=== PATIENT | female | born 1995 | race Caucasian/White ===

== ENCOUNTER → 2018-03-03 00:25 | Observation (INO) ==
--- NOTE | 2018-03-02 23:23 | OB/GYN History & Physical ---
Date of Encounter: 03/02/18 Time of Encounter: 23:23 Assessment and Plan (1) premature rupture of membranes (PPROM) with unknown onset of labor Current visit: Yes Status: Acute PPROM for moderate amount clear fluid at about 2130 this evening. GBS collected. Ampicillin 1 gram IV now. Zithromax 500mg PO now. Celestone 12mg given IM. Pt denies contractions, rare contractions on toco. Transfer to [facility]. POC discussed with Dr. Garcia and Dr. Lopez Sorenson (M fellow) (2) 31 weeks gestation of Current visit: Yes Status: Acute History of Present Illness Chief complaint: leaking fluid HPI: Ms. Brady is a 22 year old female presenting at 31w3d with c/o leaking fluid since about 2130 this evening. She reports a large gush of clear fluid and continued leaking since. She denies contractions, bleeding, or other complaints. Good FM. She receives care with Dr. Cisneros at [facility] and reports this has been uncomplicated. She denies any medical or obstetrical problems. She is taking vitamins. Her first was uncomplicated and resulted in a full term vaginal delivery at 38 weeks. Records requested but not yet available at the time of this report. Past Med Surg Social Fam HX - Past Medical History Medical history: no medical history Psychiatric history: no psych history - Past Surgical History Surgical History: no surgical history - Social History Smoking Status: Former smoker Smokeless Tobacco Status: No Alcohol use: none Drug use: none - Family History Grandmother Adopted: No Family Member Ethnicity: Non- Living Status: Still Living Hx Family Cardiac Disorders: Yes Hx Family Respiratory Disorders: No Hx Family Cancer: No Hx Family GI Disorders: No Hx Family Genitourinary Disorders: No Hx Family Endocrine Disorder: No Hx Family Musculoskeletal Disorders: No Hx Family Neuromuscular Disorders: No Hx Family Neurologic Disorders: No Hx Family HEENT Disorders: No Hx Family Autoimmune Disorders: No Hx Family Reproductive Disorders: No Hx Family Psychosocial Disorders: No Hx Family Medical Disorders: No Obstetrical History - Pregnancies : 2 Para: 1 Term: 1 : 0 Ab's: 0 Livin Medications and Allergies Pnv#75/Iron Fum/FA/Om3/Dha/Epa [Daily Combo Pack] 1 tab PO DAILY 06/09/ 18 [History] 3 Allergy/AdvReac Type Severity Reaction Status Date / Time Sulfa (Sulfonamide Allergy Hives Verified 03/02/18 22:56 Antibiotics) Review of System OB All systems PM: reviewed and no additional remarkable complaints except as stated Exam - Constitutional Constitutional: well developed, well nourished, no acute distress - HEENT HEENT: Mucus Membranes Moist, Other (poor dentition) - Lungs Respiratory exam: CTAB - Cardiovascular Cardiovascular exam: RRR - Abdomen Abdomen: Present: gravid, non tender - Extremities Extremities exam: normal inspection - Vulva Vulva: bilateral: normal - Cervix Dilation: 3 Effacement: 80 Station: -2 - Anus/Rectum Anus/Rectum: Present: normal perianal skin - Comments Comments: SSE +pooling, +ferning, +nitrazine Results Result Diagrams: 03/02/18 23:20 All other labs normal. - VTE Reasons for not Prescribing Prophylaxis: Treatment not Indicated - Low risk for VTE
[2018-03-02 23:33] LABS: Hematocrit 34.8 % (35.3-44.9); Hemoglobin 11.7 g/dL (11.5-15.4); Immature Granulocytes % 0.6 % (0-4); Lymphocytes % 19.3 %; Mean Corpuscular HGB Conc 33.6 g/dL (31.6-35.5); Mean Corpuscular Volume 89.2 fL (83.0-100.0); Mean Platelet Volume 10.4 fL (9.4-12.4); Platelet Count 244 K/mcL (140-400); Segmented Neutrophils % 68.3 %
[2018-03-02 23:34] LABS: Basophils % 0.3 %; Eosinophils # 0.1 K/mcL (0.0-0.6); Eosinophils % 1.2 %; Lymphocytes # 1.8 K/mcL (0.6-4.6); Monocytes % 10.3 %; Neutrophils # 6.4 K/mcL (1.6-8.9)
[2018-03-03 00:06] LABS: Amphetamine Screen,Urine Negative ng/mL (Cutoff=1000); Barbiturate Screen,Urine Negative ng/mL (Cutoff=200); Benzodiazepines Screen,Urine Negative ng/mL (Cutoff=200); Cannabinoid Screen,Urine Negative ng/mL (Cutoff = 50); Cocaine Screen,Urine Negative ng/mL (Cutoff= 300); Opiate Screen,Urine Negative ng/mL (Cutoff=300); Phencyclidine Screen,Urine Negative ng/mL (Cutoff=25)
[~2018-03-03 00:25] MED LIST: Ampicillin 1,000 MG in 0.9 % Sodium Chloride Mini Bag 100 ML IVPB SCH; Azithromycin 250 MG TABLET PO ONE; Betamethasone Acet/SodPhos 6 MG/ML MDV IM SCH; Ringers Solution, Lactated 1,000 ML IVC SCH; Ringers Solution, Lactated 1,000 ML ONE
== END ==
LOC: 1NENULAB
PROVIDERS: ADMIT Registered Nurse; ATTEND Registered Nurse

== ENCOUNTER 2018-07-21 21:39 | Inpatient (IN) ==
[2018-07-21] MEDS ORDERED: Isovue-370 500 ML INFUS..BTL IV ONE (22:19)
[2018-07-21 22:26] LABS: Basophils % 0.1 %; Eosinophils # 0.1 K/mcL (0.0-0.6); Eosinophils % 0.9 %; Hemoglobin 13.1 g/dL (11.5-15.4); Immature Granulocytes % 0.6 % (0-4); Lymphocytes # 0.8 K/mcL (0.6-4.6); Lymphocytes % 8.3 %; Mean Corpuscular HGB Conc 33.6 g/dL (31.6-35.5); Mean Corpuscular Volume 86.5 fL (83.0-100.0); Mean Platelet Volume 10.7 fL (9.4-12.4); Monocytes # 0.9 K/mcL (0.0-1.3); Monocytes % 10.3 %; Neutrophils # 7.2 K/mcL (1.6-8.9); Platelet Count 299 K/mcL (140-400); Red Blood Count 4.51 M/mcL (3.82-4.97); Segmented Neutrophils % 79.8 %
[2018-07-21 22:32] LABS: Clarity,Urine Clear (Clear); Color,Urine Orange (Yellow)
[2018-07-21 22:34] LABS: Bacteria,Urine None Seen per hpf (None-Few); Hyaline Casts,Urine None Seen per lpf (None-Few); Squamous Epithelial Cell,Urine Many per lpf (None-Few)
[2018-07-21 22:34] LABS: INR 1.1; Prothrombin Time 12.8 Seconds (9.4-12.1)
[2018-07-21 22:37] LABS: Activated Partial Thrombo Time 35.1 Seconds (26.0-36.0); Alanine Aminotransferase 130 Units/L (7-52); Albumin/Globulin Ratio 1.1 (1.1-2.2); Alkaline Phosphatase 295 Units/L (34-104); Aspartate Amino Transferase 56 Units/L (13-39); BUN/Creatinine Ratio 13 (6-26); Bilirubin,Direct 4.6 mg/dL (0.0-0.2); Bilirubin,Indirect 1.9 mg/dL (0.0-1.2); Bilirubin,Total 6.5 mg/dL (0.3-1.0); Blood Urea Nitrogen 8 mg/dL (6-20); Calcium 9.3 mg/dL (8.6-10.3); Carbon Dioxide 24 mEq/L (23-29); Chloride 103 mEq/L (98-107); Globulin 3.6 g/dL (2.4-3.5); Glucose 104 mg/dL (70-105); Lipase 12 Units/L (11-82); Osmolality,Calculated 283 (280-300); Potassium 3.4 mEq/L (3.5-5.1); Sodium 137 mEq/L (136-145); Total Protein 7.6 g/dL (6.4-8.9); Troponin I < 0.03 ng/mL (< 0.04); eGFR For Non-African Americans > 60 (> 60)
[2018-07-21 22:50] LABS: RBC,Urine 0-3 per hpf (0-3)
[2018-07-21 23:12] LABS: Hepatitis B Surface Antigen Nonreactive (Nonreactive)
--- NOTE | 2018-07-21 23:56 | Emergency Department Note ---
Disposition Clinical Impression: Acute cholecystitis, Biliary obstruction Disposition: Admitted As Inpatient Condition: Fair Referrals: NONE,PCP [Primary Care Provider] - Forms: ED Satisfaction Letter, Work/School Release Time of Disposition: 00:29 Abdominal Pain HPI - General Chief Complaint: ED Abdominal Pain Stated Complaint: abdominal/chest pain Time Seen by Provider: 07/21/18 21:46 Source: patient Mode of arrival: ambulatory Limitations: no limitations Nursing Notes Reviewed: Yes Vital Signs Reviewed: Yes - History of Present Illness HPI Narrative: 23-year-old female presents emergency Department with concerns of right upper quadrant epigastric pain. Patient states she has had nausea and vomiting over the past 2-3 days. She is still able to tolerate by mouth intake at home. She notes a dark color of her urine and pale pale color of her stool. Patient denies sick contacts. Denies fever, chills, chest pain, shortness breath, palpitations. No history of IV drug abuse, EtOH abuse, tattoos or new medications. Patient is jaundiced upon arrival in the emergency department. No history of gallstones, no recent trauma. Pain Scale: 7 - Related Data Home Medications Medication Instructions Recorded Confirmed No Known Home Drugs 07/21/18 07/21/18 Allergies Allergy/AdvReac Type Severity Reaction Status Date / Time Sulfa (Sulfonamide Allergy Hives Verified 07/21/18 08:22 Antibiotics) All systems ED: reviewed and negative except as stated. Review of Systems: As Per HPI Abdominal Pain PMH - Past Medical History Medical history: Reports: no medical history Female Surgical History: Reports: no surgical history Psychiatric history: Reports: no psych history - Social History Smoking status: Never smoker Alcohol use: Reports: occasionally Drug use: Reports: none Physical Exam General: Alert and in no acute distress Skin: Warm, dry, intact. Jaundice with scleral icterus Head: Normocephalic and atraumatic Neck: Supple, trachea midline and no tenderness Cardiovascular: RRR, no murmur, normal perfusion Respiratory: CTAB, no wheezing, cough, or respiratory distress Musculoskeletal: Normal strength, no tenderness, swelling or deformity GI: Tenderness to palpation right upper quadrant epigastrium. With moderate guarding without rigidity. Neuro: A&O to person, place, time and situation. No focal deficits noted on exam Psychiatric: cooperative and appropriate mood and affect. - General Limitations: no limitations General appearance: alert, in no apparent distress Course Vital Signs Temperature 98.3 F 07/21/18 21:48 Pulse Rate 78 07/21/18 21:48 Respiratory Rate 20 07/21/18 21:48 Blood Pressure 98/66 07/21/18 21:48 O2 Sat by Pulse Oximetry 100 07/21/18 21:48 Temperature 98.3 F 07/21/18 21:54 Pulse Rate 92 07/21/18 22:58 Respiratory Rate 16 07/21/18 22:58 Blood Pressure 116/76 07/21/18 22:58 O2 Sat by Pulse Oximetry 100 07/21/18 22:58 Oxygen Delivery Oxygen Delivery Room Air Abdominal Pain - MDM Narrative Medical decision making narrative: Ultrasound CT show inflammation of the gallbladder with dilatation of the biliary ducts. There is concern about possible stone within the biliary tree. I spoke with the surgeon, Dr. Ren, regarding the patient's case and presentat ion. Patient does not meet criteria for Charcot Triad or Renauld pentad as she does not have a fever and does not have altered mental status. Patient will be admitted to the hospitalist for further evaluation of her right upper quadrant pain with jaundice and to receive ERCP in the morning prior to likely surgery. - Medical Records Medical records reviewed: Yes I reviewed the patient's medical records. - Lab Data Lab results reviewed: Yes I reviewed the patient's lab results. Result diagrams: 07/21/18 22:03 07/21/18 22:03 Lab Results 07/21/18 07/21/18 07/21/18 Range/Units 22:03 22:03 22:03 WBC 9.1 (4.3-11.1) K/mcL RBC 4.51 (3.82-4.97) M/mcL Hgb 13.1 (11.5-15.4) g/dL Hct 39.0 (35.3-44.9) % MCV 86.5 (83.0-100.0) fL MCH 29.0 (28.0-33.3) pg MCHC 33.6 (31.6-35.5) g/dL RDW 13.0 (11.5-14.5) % Plt Count 299 (140-400) K/mcL MPV 10.7 (9.4-12.4) fL Immature Gran % 0.6 (0-4) % Seg Neutrophils % 79.8 % Lymphocytes % 8.3 % Monocytes % 10.3 % Eosinophils % 0.9 % Basophils % 0.1 % Neutrophils # 7.2 (1.6-8.9) K/mcL Lymphocytes # 0.8 (0.6-4.6) K/mcL Monocytes # 0.9 (0.0-1.3) K/mcL Eosinophils # 0.1 (0.0-0.6) K/mcL Basophils # 0.0 (0.0-0.2) K/mcL PT 12.8 H (9.4-12.1) Seconds INR 1.1 APTT 35.1 (26.0-36.0) Seconds Sodium 137 (136-145) mEq/L Potassium 3.4 L (3.5-5.1) mEq/L Chloride 103 (98-107) mEq/L Carbon Dioxide 24 (23-29) mEq/L BUN 8 (6-20) mg/dL Creatinine 0.62 (0.60-1.20) mg/dL Est GFR ( Amer) > 60 (> 60) Est GFR (Non-Af Amer) > 60 (> 60) BUN/Creatinine Ratio 13 (6-26) Glucose 104 (70-105) mg/dL Calculated Osmolality 283 (280-300) Calcium 9.3 (8.6-10.3) mg/dL Total Bilirubin 6.5 H (0.3-1.0) mg/dL Direct Bilirubin 4.6 H (0.0-0.2) mg/dL Indirect Bilirubin 1.9 H (0.0-1.2) mg/dL AST 56 H (13-39) Units/L ALT 130 H (7-52) Units/L Alkaline Phosphatase 295 H (34-104) Units/L Troponin I < 0.03 (< 0.04) ng/mL Serum Total Protein 7.6 (6.4-8.9) g/dL Albumin 4.0 (3.5-5.7) g/dL Globulin 3.6 H (2.4-3.5) g/dL Albumin/Globulin Ratio 1.1 (1.1-2.2) Lipase 12 (11-82) Units/L Ur Specimen Adequacy Urine Color (Yellow) Urine Clarity (Clear) Urine pH Ur Specific [place] Urine Protein Urine Glucose (UA) Urine Ketones Urine Blood Urine Nitrite Urine Bilirubin Urine Urobilinogen Ur Leukocyte Esterase Urine Microscopic RBC (0-3) per hpf Urine Microscopic WBC (0-3) per hpf Ur Squamous Epith Cells (None-Few) per lpf Urine Bacteria (None-Few) per hpf Hyaline Casts (None-Few) per lpf Ur Culture Indicated? (NO) Urine Test (Negative) Hep Bs Antigen (Nonreactive) 07/21/18 07/21/18 07/21/18 Range/Units 22:03 22:21 22:21 WBC (4.3-11.1) K/mcL RBC (3.82-4.97) M/mcL Hgb (11.5-15.4) g/dL Hct (35.3-44.9) % MCV (83.0-100.0) fL MCH (28.0-33.3) pg MCHC (31.6-35.5) g/dL RDW (11.5-14.5) % Plt Count (140-400) K/mcL MPV (9.4-12.4) fL Immature Gran % (0-4) % Seg Neutrophils % % Lymphocytes % % Monocytes % % Eosinophils % % Basophils % % Neutrophils # (1.6-8.9) K/mcL Lymphocytes # (0.6-4.6) K/mcL Monocytes # (0.0-1.3) K/mcL Eosinophils # (0.0-0.6) K/mcL Basophils # (0.0-0.2) K/mcL PT (9.4-12.1) Seconds INR APTT (26.0-36.0) Seconds Sodium (136-145) mEq/L Potassium (3.5-5.1) mEq/L Chloride (98-107) mEq/L Carbon Dioxide (23-29) mEq/L BUN (6-20) mg/dL Creatinine (0.60-1.20) mg/dL Est GFR ( Amer) (> 60) Est GFR (Non-Af Amer) (> 60) BUN/Creatinine Ratio (6-26) Glucose (70-105) mg/dL Calculated Osmolality (280-300) Calcium (8.6-10.3) mg/dL Total Bilirubin (0.3-1.0) mg/dL Direct Bilirubin (0.0-0.2) mg/dL Indirect Bilirubin (0.0-1.2) mg/dL AST (13-39) Units/L ALT (7-52) Units/L Alkaline Phosphatase (34-104) Units/L Troponin I (< 0.04) ng/mL Serum Total Protein (6.4-8.9) g/dL Albumin (3.5-5.7) g/dL Globulin (2.4-3.5) g/dL Albumin/Globulin Ratio (1.1-2.2) Lipase (11-82) Units/L Ur Specimen Adequacy See below A Urine Color [place] A (Yellow) Urine Clarity Clear (Clear) Urine pH TNP Ur Specific [place] TNP Urine Protein TNP Urine Glucose (UA) TNP Urine Ketones TNP Urine Blood TNP Urine Nitrite TNP Urine Bilirubin TNP Urine Urobilinogen TNP Ur Leukocyte Esterase TNP Urine Microscopic RBC 0-3 (0-3) per hpf Urine Microscopic WBC 5-15 H (0-3) per hpf Ur Squamous Epith Cells Many H (None-Few) per lpf Urine Bacteria None Seen (None-Few) per hpf Hyaline Casts None Seen (None-Few) per lpf Ur Culture Indicated? NO (NO) Urine Test Negative (Negative) Hep Bs Antigen Nonreactive (Nonreactive) - Radiology Data Radiology results reviewed: Yes I reviewed the patient's radiology results. - EKG Data EKG attestation: Yes I reviewed and interpreted this EKG.
[2018-07-22] MEDS ORDERED: cefTRIAXone 1,000 MG in Water for inj. (sterile) 20 ML 10 ML IVPB ONE (00:22)
[2018-07-22] MEDS ORDERED: 0.9 % Sodium Chloride 1,000 ML IVC ONE (00:23)
[2018-07-22] MEDS ORDERED: *HR* FentaNYL (PF) 100 MCG/2 ML VIAL IVP ONE (00:23)
--- NOTE | 2018-07-22 01:08 | Internal Med History&Physical ---
Date of Encounter: 07/22/18 Time of Encounter: 01:05 Internal Medicine - H&P: HPI Chief complaint: Abdominal pain Admitted From: Home Plans for Post Hospital Care: Home History of present illness: Myra Brady is a 23-year-old woman who reports no prior medical history who presents to the emergency room with the complaint of epigastric and right upper quadrant pain for the past 4 days. She describes the pain as sharp and colicky in nature but intermittent and apparition. She denies radiation to the back or whole shoulder. She denies accompanying fever or chills, chest pain or shortness of breath. She does report noticing a darker color of her urine and her stool becoming paler. She denies IV drug use, alcohol use, tattoos or being on any medications. On arrival to the ER she was seen clinically and hemodynamically stable. She was seen to be somewhat jaundiced on physical exam which she says she had not noticed before. Lab work done showed an increase in her LFTs with a significant elevation in direct bilirubin and alkaline phosphatase with a mild elevation in AST/ALT. CT imaging was done of her gallbladder, reviewed independently by me, and depictive of a dilated gallbladder with thick irregular mathis and multiple small calcified gallstones in the dependent portion of the gallbladder with mild dilation of the intrahepatic bile ducts and moderate dilation of the common duct to the ampulla. Findings are concerning for cholelithiasis and cholecystitis and this was confirmed on subsequent liver ultrasound. Surgery was consulted in recommended that the patient undergo ERCP rather than surgery at this time given her clinical presentation and stability. PMHx: None reported. Denies any prior surgeries. SHx: denies illicit drug use and smoking. FHx: Hypertension in father. Review of systems: All systems reviewed and negative except as listed above in the HPI. Past Med Surg Social Fam HX - Past Medical History Medical history: no medical history Psychiatric history: no psych history - Past Surgical History Surgical History: no surgical history - Social History Smoking Status: Never smoker Smokeless Tobacco Status: No Alcohol use: occasionally Drug use: none - Family History Grandmother Adopted: No Family Member Ethnicity: Non- Living Status: Still Living Hx Family Cardiac Disorders: Yes Hx Family Respiratory Disorders: No Hx Family Cancer: No Hx Family GI Disorders: No Hx Family Endocrine Disorder: No Hx Family Neuromuscular Disorders: No Hx Family Neurologic Disorders: No Hx Family HEENT Disorders: No Hx Family Autoimmune Disorders: No Internal Medicine - H&P: Meds No Known Home Drugs 07/21/18 [History] Allergy/AdvReac Type Severity Reaction Status Date / Time Sulfa (Sulfonamide Allergy Hives Verified 07/21/18 08:22 Antibiotics) All Systems PM: A 10-system review of systems was performed and is negative for pertinent findings except as documented above in the HPI. - Constitutional Vitals: Temp Pulse Resp BP Pulse Ox 98.3 F 96 16 126/82 100 07/21/18 21:54 07/22/18 00:43 07/22/18 00:43 07/22/18 00:43 07/22/18 00:43 Exam: Vitals: Reviewed General: Well appearing, pleasant and conversant Skin: Warm and supple HEENT: Moist mucous membranes. No conjunctivae pallor. Very poor dentition. Neck: No lymphadenopathy. No JVD. No carotid bruits. No palpable thyroid. Chest: Normal thoracic expansion. Normal breath sounds. Clear to auscultation. Heart: Normal S1 & S2; rhythmic. No rubs or murmurs. Abdomen: Non-distended, soft and moderately tender to palpation in the epigastrium and right upper quadrant. No peritoneal reaction. Liver is normal in size. Spleen is not palpable. Extremities: No clubbing, cyanosis or edema. No calf tenderness. Normal distal pulses. Neurological: Awake, alert and oriented to person, place and time. No focal deficits. Psych: Affect appropriate. Internal Med - H&P Results - Labs CBC & Chem 7: 07/21/18 22:03 07/21/18 22:03 Labs: Short CBC 07/21/18 Range/Units 22:03 WBC 9.1 (4.3-11.1) K/mcL Hgb 13.1 (11.5-15.4) g/dL Hct 39.0 (35.3-44.9) % Plt Count 299 (140-400) K/mcL Neutrophils # 7.2 (1.6-8.9) K/mcL BMP 07/21/18 22:03 Sodium 137 Potassium 3.4 L Chloride 103 Carbon Dioxide 24 BUN 8 Creatinine 0.62 Glucose 104 Calcium 9.3 Cardiac Enzymes 07/21/18 Range/Units 22:03 Troponin I < 0.03 (< 0.04) ng/mL Liver Function 07/21/18 Range/Units 22:03 Total Bilirubin 6.5 H (0.3-1.0) mg/dL Direct Bilirubin 4.6 H (0.0-0.2) mg/dL AST 56 H (13-39) Units/L ALT 130 H (7-52) Units/L Alkaline Phosphatase 295 H (34-104) Units/L Albumin 4.0 (3.5-5.7) g/dL Urine 07/21/18 Range/Units 22:21 Urine Color [place] A (Yellow) Urine Clarity Clear (Clear) Urine pH TNP Ur Specific [place] TNP Urine Protein TNP Urine Glucose (UA) TNP - Impressions ITS Impressions Abdomen/Pelvis CT 07/21/18 22:18 IMPRESSION: The gallbladder is abnormal. Cholelithiasis and suspected cholecystitis. The gallbladder is dilated with a thick irregular wall and there are multiple small calcified gallstones. Bile ducts are dilated extending to the ampulla. Choledocholithiasis suspected but not definitely visualized. There is a low insertion of the cystic duct on the common duct. Follow-up MRCP/ERCP would be helpful. Complex 3.7 cm right ovarian cyst. This may represent a hemorrhagic cyst. Follow-up recommendations as below. RECOMMENDATIONS: Managing Incidental Adnexal Cystic Mass by CT or MR Benign cyst: Premenopausal (< or equal to 50 years if LMP unknown) < or equal to 5 cm: no follow up >5 cm: US in 6-12 weeks > or equal to 10 cm: US promptly Early postmenopausal (0-5 years after LMP) < or equal to 3 cm: no follow up 3-5 cm: US in 6-12 weeks >5 cm: US promptly Late postmenopausal < or equal to 3 cm: no follow up >3 cm: US promptly Probably benign cyst : {benign appearing except demonstrates one or more of the following - (a) angulated margin, (b) not round/oval shape, (c) not well imaged due to artifact or technical parameters (ex. noncontrast CT)} Premenopausal (< than or equal to 50 years if LMP unknown) < or equal to 3 cm: no follow up 3-5 cm: US in 6-12 weeks >5 cm: US Early postmenopausal < or equal to 3 cm: no follow up >3 cm: US promptly Late postmenopausal < or equal to 1 cm: no follow up >1 cm: US Reference: Steve et al. Managing Incidental Findings on Abdominal CT: White Paper of the ACR Incidental Findings Committee. J Am Roslyn Radiol 2010;[id number] D/ / Gume Miguel MD / Gume Miguel MD Interpreting Provider: Gume Miguel MD Liver Ultrasound 07/21/18 22:19 IMPRESSION: Gallbladder wall thickening and gallstones suggesting acute cholecystitis. Intrahepatic and extrahepatic biliary ductal dilatation, concerning for biliary duct obstruction. D/ / Dick Dempsey MD / Dick Dempsey MD Interpreting Provider: Dick Dempsey MD - Assessment and plan (1) Acute cholecystitis Current Visit: Yes Status: Acute Assessment and plan: Secondary to biliary obstruction. Will keep NPO. Pain medications as needed. IVF. Blood cultures and empiric antibiotics for now. GI consult to consider ERCP given the findings. Currently clinically stable without systemic signs of sepsis. (2) Hypokalemia Current Visit: Yes Status: Acute Assessment and plan: Mild. Will supplement with KCL (3) Ovarian cyst Current Visit: Yes Status: Acute Assessment and plan: Incidentally noted on CT. Should undergo LEATHER TOOLER f/u as OP. Qualifiers: Laterality: right Qualified Code(s): N83.201 - Unspecified ovarian cyst, right side (4) DVT prophylaxis Current Visit: Yes Status: Acute Assessment and plan: SubQ heparin - Time Spent With Patient Total time spent is greater than 50% in coordination of care (as documented) at patient's floor/unit and/or counseling patient: Greater than 35 minutes
[2018-07-22] MEDS ORDERED: Ketorolac 30 MG/ML VIAL IVP PRN (01:12)
[2018-07-22] MEDS ORDERED: Naloxone 0.4 MG/ML INJ IVP PRN (01:12)
[2018-07-22] MEDS: MetroNIDAZOLE 500 MG/100 ML 500 MG/100 ML BAG IVPB SCH ×4 (01:52→23:59)
[2018-07-22] MEDS: OXYCODONE Oral CONC 10 MG/0.5 ML ORAL.SYG SL PRN ×2 (03:05→23:58)
[2018-07-22] MEDS: Ringers Solution, Lactated 1,000 ML IVC SCH ×3 (03:05→17:09)
[2018-07-22 03:25] LABS: Hepatitis A Antibody IgM Nonreactive (Nonreactive); Hepatitis B Core IgM Nonreactive (Nonreactive); Hepatitis C Virus Antibody Nonreactive (Nonreactive)
[2018-07-22 06:42] LABS: Basophils % 0.2 %; Eosinophils # 0.2 K/mcL (0.0-0.6); Eosinophils % 2.5 %; Hematocrit 33.8 % (35.3-44.9); Immature Granulocytes % 0.2 % (0-4); Lymphocytes # 1.2 K/mcL (0.6-4.6); Mean Corpuscular HGB Conc 32.5 g/dL (31.6-35.5); Mean Corpuscular Hemoglobin 28.6 pg (28.0-33.3); Mean Corpuscular Volume 87.8 fL (83.0-100.0); Mean Platelet Volume 10.8 fL (9.4-12.4); Monocytes # 0.8 K/mcL (0.0-1.3); Monocytes % 12.9 %; Platelet Count 240 K/mcL (140-400); Red Blood Count 3.85 M/mcL (3.82-4.97); Red Cell Distribution Width 13.2 % (11.5-14.5); Segmented Neutrophils % 65.2 %
[2018-07-22 07:03] LABS: BUN/Creatinine Ratio 10 (6-26); Blood Urea Nitrogen 5 mg/dL (6-20); Calcium 8.7 mg/dL (8.6-10.3); Carbon Dioxide 24 mEq/L (23-29); Chloride 107 mEq/L (98-107); Glucose 89 mg/dL (70-105); Osmolality,Calculated 283 (280-300); Potassium 3.2 mEq/L (3.5-5.1); Sodium 138 mEq/L (136-145); eGFR For Non-African Americans > 60 (> 60)
[2018-07-22 07:05] LABS: Albumin 3.5 g/dL (3.5-5.7); Albumin/Globulin Ratio 1.3 (1.1-2.2); Bilirubin,Direct 4.5 mg/dL (0.0-0.2); Bilirubin,Indirect 1.1 mg/dL (0.0-1.2); Bilirubin,Total 5.6 mg/dL (0.3-1.0); Globulin 2.6 g/dL (2.4-3.5); Total Protein 6.1 g/dL (6.4-8.9)
--- NOTE | 2018-07-22 08:57 | Internal Med Progress Note ---
Hospitalist Progress Note - Encounter Date of Encounter: 07/22/18 Time of Encounter: 08:53 - Subjective Interval History: Ms. Brady is a 23 y/o F with no PMH presented to ER RUQ and epigastric abdominal pain from last [address] of abd showed Cholelithiasis with cholecystitis, also concerning for choledocholithiasis. Her abd US confirmed Cholelithiasis with cholecystitis. Pt states she is feeling better now. Her abd pain is tolerable with current pain meds. still has 5/10 abd pain. - Exam Vitals: Temp Pulse Resp BP Pulse Ox 97.9 F 87 14 117/84 96 07/22/18 06:28 07/22/18 06:28 07/22/18 06:28 07/22/18 06:28 07/22/18 06:28 Exam: General: A, A, O x3 Chest: Normal thoracic expansion. Normal breath sounds. Clear to auscultation. Heart: Normal S1 & S2; rhythmic. No rubs or murmurs. Abdomen: Non-distended, soft and moderately tender to palpation in the epigastrium and right upper quadrant. No peritoneal reaction. Extremities: No cyanosis or edema. No calf tenderness. Normal distal pulses. Psych: Affect appropriate. - Assessment and Plan (1) Acute cholecystitis Current Visit: Yes Status: Acute Assessment and Plan: Due to cholelithiasis Cont NPO IV hydration Surgery consulted LFT's trending down May need ERCP first.. GI consulted by surgery IV analgesic Fentanyl added cont empirical abx Cipro and Flagyl (2) Biliary obstruction Current Visit: Yes Status: Acute Assessment and Plan: GI consulted Possible ERCP later today NPO for now (3) Hypokalemia Current Visit: Yes Status: Acute Assessment and Plan: Resolved (4) Ovarian cyst Current Visit: Yes Status: Acute Assessment and Plan: Incidentally noted on CT. Recommend PORTRAIT PHOTOGRAPHER f/u as OP. (5) DVT prophylaxis Current Visit: Yes Status: Acute Assessment and Plan: SubQ heparin - Time Spent with Patient Total time spent is greater than 50% in coordination of care (as documented) at patient's floor/unit and/or counseling patient: Internal Medicine: Result - Labs CBC & Chem 7: 07/22/18 05:26 07/22/18 05:26 Labs: Short CBC 07/21/18 07/22/18 Range/Units 22:03 05:26 WBC 9.1 6.1 (4.3-11.1) K/mcL Hgb 13.1 11.0 L D (11.5-15.4) g/dL Hct 39.0 33.8 L (35.3-44.9) % Plt Count 299 240 (140-400) K/mcL Neutrophils # 7.2 4.0 (1.6-8.9) K/mcL BMP 07/21/18 07/22/18 22:03 05:26 Sodium 137 138 Potassium 3.4 L 3.2 L Chloride 103 107 Carbon Dioxide 24 24 BUN 8 5 L Creatinine 0.62 0.51 L Glucose 104 89 Calcium 9.3 8.7 Cardiac Enzymes 07/21/18 Range/Units 22:03 Troponin I < 0.03 (< 0.04) ng/mL Liver Function 07/21/18 07/22/18 Range/Units 22:03 05:26 Total Bilirubin 6.5 H 5.6 H (0.3-1.0) mg/dL Direct Bilirubin 4.6 H 4.5 H (0.0-0.2) mg/dL AST 56 H 42 H (13-39) Units/L ALT 130 H 96 H (7-52) Units/L Alkaline Phosphatase 295 H 263 H (34-104) Units/L Albumin 4.0 3.5 (3.5-5.7) g/dL Urine 07/21/18 Range/Units 22:21 Urine Color [place] A (Yellow) Urine Clarity Clear (Clear) Urine pH TNP Ur Specific [place] TNP Urine Protein TNP Urine Glucose (UA) TNP - ABG Interpretation ABG results: PT/INR, D-dimer PT 12.8 Seconds (9.4-12.1) H 07/21/18 22:03 - Impressions Impressions Abdomen/Pelvis CT 07/21/18 22:18 IMPRESSION: The gallbladder is abnormal. Cholelithiasis and suspected cholecystitis. The gallbladder is dilated with a thick irregular wall and there are multiple small calcified gallstones. Bile ducts are dilated extending to the ampulla. Choledocholithiasis suspected but not definitely visualized. There is a low insertion of the cystic duct on the common duct. Follow-up MRCP/ERCP would be helpful. Complex 3.7 cm right ovarian cyst. This may represent a hemorrhagic cyst. Follow-up recommendations as below. RECOMMENDATIONS: Managing Incidental Adnexal Cystic Mass by CT or MR Benign cyst: Premenopausal (< or equal to 50 years if LMP unknown) < or equal to 5 cm: no follow up >5 cm: US in 6-12 weeks > or equal to 10 cm: US promptly Early postmenopausal (0-5 years after LMP) < or equal to 3 cm: no follow up 3-5 cm: US in 6-12 weeks >5 cm: US promptly Late postmenopausal < or equal to 3 cm: no follow up >3 cm: US promptly Probably benign cyst : {benign appearing except demonstrates one or more of the following - (a) angulated margin, (b) not round/oval shape, (c) not well imaged due to artifact or technical parameters (ex. noncontrast CT)} Premenopausal (< than or equal to 50 years if LMP unknown) < or equal to 3 cm: no follow up 3-5 cm: US in 6-12 weeks >5 cm: US Early postmenopausal < or equal to 3 cm: no follow up >3 cm: US promptly Late postmenopausal < or equal to 1 cm: no follow up >1 cm: US Reference: [place] et al. Managing Incidental Findings on Abdominal CT: White Paper of the ACR Incidental Findings Committee. J Am Roslyn Radiol 2010;[id number] D/ / Gume Miguel MD / Gume Miguel MD Interpreting Provider: Gume Miguel MD Liver Ultrasound 07/21/18 22:19 IMPRESSION: Gallbladder wall thickening and gallstones suggesting acute cholecystitis. Intrahepatic and extrahepatic biliary ductal dilatation, concerning for biliary duct obstruction. D/ / Dick Dempsey MD / Dick Dempsey MD Interpreting Provider: Dick Dempsey MD Consult Discharge Plan - Plan Referrals: NONE,PCP [Primary Care Provider] - (4) Ovarian cyst Qualifiers: Laterality: right Qualified Code(s): N83.201 - Unspecified ovarian cyst, right side
--- NOTE | 2018-07-22 10:26 | General Surgery Consult Note ---
<Babar Perez S - Last Filed: 07/22/18 16:43> Date of Encounter: 07/22/18 Time of Encounter: 08:00 Assessment and Plan (1) Acute cholecystitis Current Visit: Yes Status: Acute Surgery will re-evaluate for possible cholecystectomy now that patient is s/p ERCP IV fluid hydration LFTs down trending GI consulted for biliary ductal dilation, will have ERCP today GI placed stents in common bile duct and pancreatic duct Fentanyl and oxycodone for pain Zofran and phenergan for nausea Continue flagyl and cipro WBC 6.1 Alk phos 295 > 263 Patient NPO (2) Biliary obstruction Current Visit: Yes Status: Acute US and CT abdomen showed evidence of cholecystitis with gallstones and biliary ductal dilation concerning for obstruction T. bili elevated 6.5 > 5.6 today AST 56 > 42 today ALT 130 > 96 Alk phos 295 > 263 GI consulted Patient had ERCP today - sudge and 2 mm stone removed from bile duct, stents placed in CBD and pancreatic duct, multiple stones on gallbladder Will follow up as outpatient in 6 weeks for stent removal (3) Hypokalemia Current Visit: Yes Status: Acute Management per primary team Resolved Replace K as needed (4) Ovarian cyst Current Visit: Yes Status: Acute Management per primary team Recommend [facility] follow up as outpatient Qualifiers: Laterality: right Qualified Code(s): N83.201 - Unspecified ovarian cyst, right side History of Present Illness Consult date: 07/22/18 Reason for consult: other (cholecystitis) Requesting physician: Bakari Rutledge History of present illness: Patient with no PMHx presented to [facility] with complaints of RUQ abdominal pain for the past 4 days. Patient's vitals were stable in the ED. No leukocytosis. Direct bilirubin elevated to 4.6. Elevated transaminases. RUQ US and ab/pelvis CT showed evidence of cholecystitis with gallstones, biliary ductal dilation, and a right 3.7 cm ovarian cyst. Surgery was consulted to acute cholecystitis. Patient seen and examined this AM. She states her RUQ pain is sharp, intermittent, and not associated with eating. The pain does not radiate to her back or shoulder. It was 9/10 on presentation and is currently 3/10. She denies nausea, vomiting, diarrhea/constipation, CP, SOB, burning with urination. Patient denies any surgical history. She denies smoking and recreational drugs. She admits to drinking a couple beers per month. She believes her father has high blood pressure. Past Med Surg Social Fam HX - Past Medical History Medical history: no medical history Psychiatric history: no psych history - Past Surgical History Surgical History: no surgical history - Social History Smoking Status: Never smoker Smokeless Tobacco Status: No Alcohol use: occasionally Drug use: none - Family History Grandmother Adopted: No Family Member Ethnicity: Non- Living Status: Still Living Hx Family Cardiac Disorders: Yes (HTN) Hx Family Respiratory Disorders: No Hx Family Cancer: No Hx Family GI Disorders: No Hx Family Endocrine Disorder: No Hx Family Neuromuscular Disorders: No Hx Family Neurologic Disorders: No Hx Family HEENT Disorders: No Hx Family Autoimmune Disorders: No Medications and Allergies No Known Home Drugs 07/21/18 [History] Allergy/AdvReac Type Severity Reaction Status Date / Time Sulfa (Sulfonamide Allergy Hives Verified 07/21/18 08:22 Antibiotics) Review of Systems All systems PM: The remainder of the systems were reviewed and are negative General Surgery Exam Initial Vital Signs Temp Pulse Resp BP Pulse Ox 98.3 F 78 20 98/66 100 07/21/18 21:48 07/21/18 21:48 07/21/18 21:48 07/21/18 21:48 07/21/18 21:48 - General physical appearance no distress - ENT poor retirement - Respiratory normal expansion, normal respiratory effort - Cardiovascular Cardiovascular exam: Present: RRR - Abdomen Abdomen general surgery: Present: bowel sounds present, soft, tender Abdominal Tenderness: Present: epigastic, RUQ - Integumentary Integumentary general surgery: Present: warm and dry, no abnormal pigmentation - Psychiatric Psychiatric general surgery: Present: A&Ox3, appropriate Exam Initial Vital Signs Temp Pulse Resp BP Pulse Ox 98.3 F 78 20 98/66 100 07/21/18 21:48 07/21/18 21:48 07/21/18 21:48 07/21/18 21:48 07/21/18 21:48 Results - Labs 07/22/18 05:26 07/22/18 05:26 Abnormal lab results Hgb 11.0 g/dL (11.5-15.4) L D 07/22/18 05:26 Hct 33.8 % (35.3-44.9) L 07/22/18 05:26 PT 12.8 Seconds (9.4-12.1) H 07/21/18 22:03 Potassium 3.2 mEq/L (3.5-5.1) L 07/22/18 05:26 BUN 5 mg/dL (6-20) L 07/22/18 05:26 Creatinine 0.51 mg/dL (0.60-1.20) L 07/22/18 05:26 Total Bilirubin 5.6 mg/dL (0.3-1.0) H 07/22/18 05:26 Direct Bilirubin 4.5 mg/dL (0.0-0.2) H 07/22/18 05:26 AST 42 Units/L (13-39) H 07/22/18 05:26 ALT 96 Units/L (7-52) H 07/22/18 05:26 Alkaline Phosphatase 263 Units/L (34-104) H 07/22/18 05:26 Serum Total Protein 6.1 g/dL (6.4-8.9) L 07/22/18 05:26 Ur Specimen Adequacy See below A 07/21/18 22:21 Urine Color [place] (Yellow) A 07/21/18 22:21 Urine Microscopic WBC 5-15 per hpf (0-3) H 07/21/18 22:21 Ur Squamous Epith Cells Many per lpf (None-Few) H 07/21/18 22:21 Diabetes panel 07/21/18 07/22/18 07/22/18 Range/Units 22:03 05:26 05:26 Sodium 137 138 (136-145) mEq/L Potassium 3.4 L 3.2 L (3.5-5.1) mEq/L Chloride 103 107 (98-107) mEq/L Carbon Dioxide 24 24 (23-29) mEq/L BUN 8 5 L (6-20) mg/dL Creatinine 0.62 0.51 L (0.60-1.20) mg/dL Glucose 104 89 (70-105) mg/dL Calcium 9.3 8.7 (8.6-10.3) mg/dL AST 56 H 42 H (13-39) Units/L ALT 130 H 96 H (7-52) Units/L Alkaline Phosphatase 295 H 263 H (34-104) Units/L Albumin 4.0 3.5 (3.5-5.7) g/dL Calcium panel 07/21/18 07/22/18 07/22/18 Range/Units 22:03 05:26 05:26 Calcium 9.3 8.7 (8.6-10.3) mg/dL Albumin 4.0 3.5 (3.5-5.7) g/dL Pituitary panel 07/21/18 07/22/18 Range/Units 22:03 05:26 Sodium 137 138 (136-145) mEq/L Potassium 3.4 L 3.2 L (3.5-5.1) mEq/L Chloride 103 107 (98-107) mEq/L Carbon Dioxide 24 24 (23-29) mEq/L BUN 8 5 L (6-20) mg/dL Creatinine 0.62 0.51 L (0.60-1.20) mg/dL Glucose 104 89 (70-105) mg/dL Calcium 9.3 8.7 (8.6-10.3) mg/dL Adrenal panel 07/21/18 07/22/18 07/22/18 Range/Units 22:03 05:26 05:26 Sodium 137 138 (136-145) mEq/L Potassium 3.4 L 3.2 L (3.5-5.1) mEq/L Chloride 103 107 (98-107) mEq/L Carbon Dioxide 24 24 (23-29) mEq/L BUN 8 5 L (6-20) mg/dL Creatinine 0.62 0.51 L (0.60-1.20) mg/dL Glucose 104 89 (70-105) mg/dL Calcium 9.3 8.7 (8.6-10.3) mg/dL Total Bilirubin 6.5 H 5.6 H (0.3-1.0) mg/dL AST 56 H 42 H (13-39) Units/L ALT 130 H 96 H (7-52) Units/L Alkaline Phosphatase 295 H 263 H (34-104) Units/L Albumin 4.0 3.5 (3.5-5.7) g/dL All other labs normal. Consult Discharge Plan - Plan Referrals: NONE,PCP [Primary Care Provider] - <Jayla Ren - Last Filed: 07/23/18 09:01> Assessment and Plan (1) Choledocholithiasis with acute cholecystitis Current Visit: Yes Status: Acute discussed imaging, labs and physical findings with patient will plan laparoscopic cholecystectomy in future ok clears and see how tolerates check labs: lft, cbc, lipase in am prn pain control ivf hydration (2) Elevated LFTs Current Visit: Yes Status: Acute trend History of Present Illness Reason for consult: gallstones History of present illness: Patient is healthy 23 yo female with epigastric and RUQ sharp pain without radiation for the last 4 days. Accompanying nausea and emesis intermittently. No fevers chills or night sweats. No diarrhea. Presented to ED due to continued manjinder n. CT showed cholecystitis and CBD dilation. Elevated lfts. Past Med Surg Social Fam HX - Past Medical History Source: patient Review of Systems All systems PM: reviewed and no additional remarkable complaints except as stated All systems PM: The remainder of the systems were reviewed and are negative General Surgery Exam Initial Vital Signs Temp Pulse Resp BP Pulse Ox 98.3 F 78 20 98/66 100 07/21/18 21:48 07/21/18 21:48 07/21/18 21:48 07/21/18 21:48 07/21/18 21:48 - General physical appearance well developed, well nourished, no distress, no pain - Eyes PERRL, normal ocular movement - ENT normal mucosa, normocephalic - Neck trachea midline - Respiratory normal expansion, normal respiratory effort - Cardiovascular Cardiovascular exam: Present: RRR - Abdomen Abdomen general surgery: Present: bowel sounds present, soft, tender. Absent: distended, guarding, rebound Abdominal Tenderness: Present: epigastic, RUQ - Integumentary Integumentary general surgery: Present: warm and dry, no abnormal pigmentation - Neurologic Present: CN 2-12 grossly intact - Musculoskeletal Present: normal gait - Psychiatric Psychiatric general surgery: Present: A&Ox3, speech is normal Exam Initial Vital Signs Temp Pulse Resp BP Pulse Ox 98.3 F 78 20 98/66 100 07/21/18 21:48 07/21/18 21:48 07/21/18 21:48 07/21/18 21:48 07/21/18 21:48 Results - Labs 07/23/18 05:17 07/23/18 05:17 Abnormal lab results RBC 3.68 M/mcL (3.82-4.97) L 07/23/18 05:17 Hgb 10.6 g/dL (11.5-15.4) L 07/23/18 05:17 Hct 32.6 % (35.3-44.9) L 07/23/18 05:17 PT 12.8 Seconds (9.4-12.1) H 07/21/18 22:03 Creatinine 0.48 mg/dL (0.60-1.20) L 07/23/18 05:17 Glucose 108 mg/dL (70-105) H 07/23/18 05:17 Total Bilirubin 1.4 mg/dL (0.3-1.0) H 07/23/18 05:17 Direct Bilirubin 4.5 mg/dL (0.0-0.2) H 07/22/18 05:26 ALT 68 Units/L (7-52) H 07/23/18 05:17 Alkaline Phosphatase 234 Units/L (34-104) H 07/23/18 05:17 Serum Total Protein 6.0 g/dL (6.4-8.9) L 07/23/18 05:17 Albumin 3.4 g/dL (3.5-5.7) L 07/23/18 05:17 Ur Specimen Adequacy See below A 07/21/18 22:21 Urine Color [place] (Yellow) A 07/21/18 22:21 Urine Microscopic WBC 5-15 per hpf (0-3) H 07/21/18 22:21 Ur Squamous Epith Cells Many per lpf (None-Few) H 07/21/18 22:21 Diabetes panel 07/23/18 Range/Units 05:17 Sodium 138 (136-145) mEq/L Potassium 3.9 (3.5-5.1) mEq/L Chloride 106 (98-107) mEq/L Carbon Dioxide 26 (23-29) mEq/L BUN 8 (6-20) mg/dL Creatinine 0.48 L (0.60-1.20) mg/dL Glucose 108 H (70-105) mg/dL Calcium 9.1 (8.6-10.3) mg/dL AST 20 (13-39) Units/L ALT 68 H (7-52) Units/L Alkaline Phosphatase 234 H (34-104) Units/L Albumin 3.4 L (3.5-5.7) g/dL Calcium panel 07/23/18 Range/Units 05:17 Calcium 9.1 (8.6-10.3) mg/dL Albumin 3.4 L (3.5-5.7) g/dL Pituitary panel 07/23/18 Range/Units 05:17 Sodium 138 (136-145) mEq/L Potassium 3.9 (3.5-5.1) mEq/L Chloride 106 (98-107) mEq/L Carbon Dioxide 26 (23-29) mEq/L BUN 8 (6-20) mg/dL Creatinine 0.48 L (0.60-1.20) mg/dL Glucose 108 H (70-105) mg/dL Calcium 9.1 (8.6-10.3) mg/dL Adrenal panel 07/23/18 Range/Units 05:17 Sodium 138 (136-145) mEq/L Potassium 3.9 (3.5-5.1) mEq/L Chloride 106 (98-107) mEq/L Carbon Dioxide 26 (23-29) mEq/L BUN 8 (6-20) mg/dL Creatinine 0.48 L (0.60-1.20) mg/dL Glucose 108 H (70-105) mg/dL Calcium 9.1 (8.6-10.3) mg/dL Total Bilirubin 1.4 H (0.3-1.0) mg/dL AST 20 (13-39) Units/L ALT 68 H (7-52) Units/L Alkaline Phosphatase 234 H (34-104) Units/L Albumin 3.4 L (3.5-5.7) g/dL All other labs normal. - Imaging CT scan - abdomen: report reviewed, image reviewed CT scan - pelvis: report reviewed, image reviewed - Attending Attestation I examined this patient and my medical decision-making was reviewed with the Resident Physician. I agree with the documented findings, disposition and treatment plan as described except to the extent set forth below.
[2018-07-22] MEDS: *HR* Heparin 5,000 UNIT/ML VIAL SQ SCH ×2 (11:00→17:10)
--- NOTE | 2018-07-22 11:19 | Gastroenterology Consult Note ---
<Dick Blandon Zbigniew - Last Filed: 07/22/18 11:16> Date of Encounter: 07/22/18 Time of Encounter: 10:00 - Assessment and plan (1) Biliary obstruction Current Visit: Yes Status: Acute Assessment and plan: RUQ US showed gallbladder wall thickening and gallstones suggesting acute cholecystitis, intrahepatic and extrahepatic biliary ductal dilation concerning for biliary duct obstruction. CT A/P showed cholelithiasis and suspected cholecystitis, bile ducts are not dilated extending to the ampulla, choledocholithiasis suspected but not visualized, there is low insertion of the cystic duct on the common duct. On admission, TB 6.5, DB 4.6, AST 56, ALT 130, alk phos 295, hepatitis profile negative. Today TB 5.6, DB 4.5, AST 42, ALT 96, alk phos 263. Plan for ERCP today. Keep patient NPO. (2) Acute cholecystitis Current Visit: Yes Status: Acute Assessment and plan: Surgery consulted. - Time Spent With Patient Total time spent is greater than 50% in coordination of care (as documented) at patient's floor/unit and/or counseling patient: GI History of Present Illness - Data of Consult Patient: new to practice Consult date: 07/22/18 Requesting Physician: Bakari Rutledge MD - Consult Narrative Reason for consult: Ductal dilation History of present illness: Ms. Brady is a 23 year old female with no medical history presented to the ED with epigastric and RUQ pain for 4 days prior to admission. She denies fever, chills, chest pain, shortness of breath, IV drug use, alcohol use, diarrhea, mansoor larry, or hematochezia. On admission, TB 6.5, DB 4.6, AST 56, ALT 130, alk phos 295. Today TB 5.6, DB 4.5, AST 42, ALT 96, alk phos 263. Hepatitis profile negative. RUQ US showed gallbladder wall thickening and gallstones suggesting acute cholecystitis, intrahepatic and extrahepatic biliary ductal dilation concerning for biliary duct obstruction. CT A/P showed cholelithiasis and suspected cholecystitis, bile ducts are not dilated extending to the ampulla, choledocholithiasis suspected but not visualized, there is low insertion of the cystic duct on the common duct. Procedures: None NSAIDs: None Anticoagulation: None Past Med Surg Social Fam HX - Past Medical History Medical history: no medical history Psychiatric history: no psych history - Past Surgical History Surgical History: no surgical history - Social History Smoking Status: Never smoker Smokeless Tobacco Status: No Alcohol use: occasionally Drug use: none - Family History Grandmother Adopted: No Family Member Ethnicity: Non- Living Status: Still Living Hx Family Cardiac Disorders: Yes (HTN) Hx Family Respiratory Disorders: No Hx Family Cancer: No Hx Family GI Disorders: No Hx Family Endocrine Disorder: No Hx Family Neuromuscular Disorders: No Hx Family Neurologic Disorders: No Hx Family HEENT Disorders: No Hx Family Autoimmune Disorders: No - Gastrointestinal Gastrointestinal: Present: as per HPI - Constitutional Constitutional: as per HPI - EENT Eyes: as per HPI Ears: Present: as per HPI Nose, mouth and throat: Present: as per HPI - Cardiovascular Cardiovascular ROS: Present: as per HPI - Respiratory Respiratory IM: Present: as per HPI - Genitourinary Genitourinary: Absent: change in color, Urinary frequency - Neurological ROS Neurological GI: Present: as per HPI - Hematologic/Lymphatic Hematologic/Lymphatic pediatric: Present: as per HPI - Musculoskeletal Musculoskeletal ROS GI: Present: as per HPI - Integumentary Integumentary GI: Present: as per HPI - Psychiatric ROS Psychiatric GI: Present: as per HPI - Endocrine Endocrine IM: Present: as per HPI - Constitutional Vitals: Temp Pulse Resp BP Pulse Ox 98.1 F 69 16 99/64 98 07/22/18 10:56 07/22/18 10:56 07/22/18 10:56 07/22/18 10:56 07/22/18 10:56 General appearance: Present: cooperative, A&O X 3, no acute distress, answers questions appropriately - Head Head exam: Present: atraumatic, normocephalic - Eye Eye exam: Present: normal appearance, sclera anicteric - ENT ENT exam: Present: mucous membranes dry - Neck Neck exam general surgery: Present: normal inspection, trachea midline - Respiratory Respiratory exam: Present: CTAB. Absent: rales, rhonchi - Cardiovascular Cardiovascular exam: Present: RRR, +S1, +S2 - GI/Abdominal GI/Abdominal exam: Present: soft, tenderness (Epigastric, RUQ), no peritoneal signs. Absent: distended, firm, guarding - Rectal Rectal exam: Present: deferred - Extremities Exam Extremities exam: Present: warm - Neurological Exam Neurological exam: Present: no focal deficits - Psychiatric Psychiatric exam: Present: normal affect, normal mood - Skin Skin exam: Present: dry, intact, normal color, warm Results - Labs CBC & Chem 7: 07/22/18 05:26 07/22/18 05:26 Labs: Last Result Calcium 8.7 mg/dL (8.6-10.3) 07/22/18 05:26 Troponin I < 0.03 ng/mL (< 0.04) 07/21/18 22:03 Entire Visit Hgb 11.0 g/dL (11.5-15.4) L D 07/22/18 05:26 Hct 33.8 % (35.3-44.9) L 07/22/18 05:26 PT 12.8 Seconds (9.4-12.1) H 07/21/18 22:03 Total Bilirubin 5.6 mg/dL (0.3-1.0) H 07/22/18 05:26 AST 42 Units/L (13-39) H 07/22/18 05:26 ALT 96 Units/L (7-52) H 07/22/18 05:26 Lipase 12 Units/L (11-82) 07/21/18 22:03 - ABG ABG results: PT/INR, D-dimer PT 12.8 Seconds (9.4-12.1) H 07/21/18 22:03 - Impressions Impressions Abdomen/Pelvis CT 07/21/18 22:18 IMPRESSION: The gallbladder is abnormal. Cholelithiasis and suspected cholecystitis. The gallbladder is dilated with a thick irregular wall and there are multiple small calcified gallstones. Bile ducts are dilated extending to the ampulla. Choledocholithiasis suspected but not definitely visualized. There is a low insertion of the cystic duct on the common duct. Follow-up MRCP/ERCP would be helpful. Complex 3.7 cm right ovarian cyst. This may represent a hemorrhagic cyst. Follow-up recommendations as below. RECOMMENDATIONS: Managing Incidental Adnexal Cystic Mass by CT or MR Benign cyst: Premenopausal (< or equal to 50 years if LMP unknown) < or equal to 5 cm: no follow up >5 cm: US in 6-12 weeks > or equal to 10 cm: US promptly Early postmenopausal (0-5 years after LMP) < or equal to 3 cm: no follow up 3-5 cm: US in 6-12 weeks >5 cm: US promptly Late postmenopausal < or equal to 3 cm: no follow up >3 cm: US promptly Probably benign cyst : {benign appearing except demonstrates one or more of the following - (a) angulated margin, (b) not round/oval shape, (c) not well imaged due to artifact or technical parameters (ex. noncontrast CT)} Premenopausal (< than or equal to 50 years if LMP unknown) < or equal to 3 cm: no follow up 3-5 cm: US in 6-12 weeks >5 cm: US Early postmenopausal < or equal to 3 cm: no follow up >3 cm: US promptly Late postmenopausal < or equal to 1 cm: no follow up >1 cm: US Reference: Steve et al. Managing Incidental Findings on Abdominal CT: White Paper of the ACR Incidental Findings Committee. J Am Roslyn Radiol 2010;7:754-773 D/ / Gume Miguel MD / Gume Miguel MD Interpreting Provider: Gume Miguel MD Liver Ultrasound 07/21/18 22:19 IMPRESSION: Gallbladder wall thickening and gallstones suggesting acute cholecystitis. Intrahepatic and extrahepatic biliary ductal dilatation, concerning for biliary duct obstruction. D/ / Dick Dempsey MD / Dick Dempsey MD Interpreting Provider: Dick Dempsey MD Consult Discharge Plan - Plan Referrals: NONE,PCP [Primary Care Provider] - <Otoniel Salas - Last Filed: 07/22/18 17:48> Time of Encounter: 13:35 - Time Spent With Patient Total time spent is greater than 50% in coordination of care (as documented) at patient's floor/unit and/or counseling patient: GI History of Present Illness - Data of Consult Requesting Physician: Bakari Rutledge MD - Consult Narrative History of present illness: Ms. Brady is a 23 year old female - Constitutional Vitals: Temp Pulse Resp BP Pulse Ox 98.6 F 56 12 108/73 98 07/22/18 16:00 07/22/18 16:00 07/22/18 16:00 07/22/18 16:00 07/22/18 16:00 Results - Labs CBC & Chem 7: 07/22/18 05:26 07/22/18 05:26 Labs: Last Result Calcium 8.7 mg/dL (8.6-10.3) 07/22/18 05:26 Troponin I < 0.03 ng/mL (< 0.04) 07/21/18 22:03 Entire Visit Hgb 11.0 g/dL (11.5-15.4) L D 07/22/18 05:26 Hct 33.8 % (35.3-44.9) L 07/22/18 05:26 PT 12.8 Seconds (9.4-12.1) H 07/21/18 22:03 Total Bilirubin 5.6 mg/dL (0.3-1.0) H 07/22/18 05:26 AST 42 Units/L (13-39) H 07/22/18 05:26 ALT 96 Units/L (7-52) H 07/22/18 05:26 Lipase 12 Units/L (11-82) 07/21/18 22:03 - ABG ABG results: PT/INR, D-dimer PT 12.8 Seconds (9.4-12.1) H 07/21/18 22:03 - Impressions Impressions Abdomen/Pelvis CT 07/21/18 22:18 IMPRESSION: The gallbladder is abnormal. Cholelithiasis and suspected cholecystitis. The gallbladder is dilated with a thick irregular wall and there are multiple small calcified gallstones. Bile ducts are dilated extending to the ampulla. Choledocholithiasis suspected but not definitely visualized. There is a low insertion of the cystic duct on the common duct. Follow-up MRCP/ERCP would be helpful. Complex 3.7 cm right ovarian cyst. This may represent a hemorrhagic cyst. Follow-up recommendations as below. RECOMMENDATIONS: Managing Incidental Adnexal Cystic Mass by CT or MR Benign cyst: Premenopausal (< or equal to 50 years if LMP unknown) < or equal to 5 cm: no follow up >5 cm: US in 6-12 weeks > or equal to 10 cm: US promptly Early postmenopausal (0-5 years after LMP) < or equal to 3 cm: no follow up 3-5 cm: US in 6-12 weeks >5 cm: US promptly Late postmenopausal < or equal to 3 cm: no follow up >3 cm: US promptly Probably benign cyst : {benign appearing except demonstrates one or more of the following - (a) angulated margin, (b) not round/oval shape, (c) not well imaged due to artifact or technical parameters (ex. noncontrast CT)} Premenopausal (< than or equal to 50 years if LMP unknown) < or equal to 3 cm: no follow up 3-5 cm: US in 6-12 weeks >5 cm: US Early postmenopausal < or equal to 3 cm: no follow up >3 cm: US promptly Late postmenopausal < or equal to 1 cm: no follow up >1 cm: US Reference: Steve et al. Managing Incidental Findings on Abdominal CT: White Paper of the ACR Incidental Findings Committee. J Am Roslyn Radiol 2010;7:[id number] D/ / Gume Miguel MD / Gume Miguel MD Interpreting Provider: Gume Miguel MD Liver Ultrasound 07/21/18 22:19 IMPRESSION: Gallbladder wall thickening and gallstones suggesting acute cholecystitis. Intrahepatic and extrahepatic biliary ductal dilatation, concerning for biliary duct obstruction. D/ / Dick Dempsey MD / Dick Dempsey MD Interpreting Provider: Dick Dempsey MD Cath/Invasive Procedure 07/22/18 00:00 IMPRESSION: Fluoroscopy was utilized for the purposes of ERCP for deployment of a common bile duct stent D/ / Rigoberto Kramer MD / Rigoberto Kramer MD Interpreting Provider: Rigoberto Kramer MD - Attending Attestation I have personally performed a face to face evaluation on this patient. I have reviewed and agree with the care plan. History and Exam by me shows: Patient seen. Currently denies any active issues on examination does has mild e pigastric/ruq tenderness. A: very elevated LFTs along with dilated CBD concerning for a CBD stone obstruction. Rec: ERCP procedure including risks was explained to the patient
[2018-07-22] MEDS: *HR* FentaNYL (PF) 100 MCG/2 ML VIAL IVP PRN (12:30)
[2018-07-22] MEDS ORDERED: *HR* Promethazine 25 MG/ML VIAL IVP PRN ×2 (12:34→14:58)
[2018-07-22] MEDS ORDERED: Ondansetron 4 MG/2 ML VIAL IVP PRN (12:34)
--- NOTE | 2018-07-22 13:09 | Anesthesia Evaluation PreOp ---
Date of Encounter: 07/22/18 Time of Encounter: 13:44 - Past History Planned Operation: ERCP Cardiac History: Denies any Significant Hx Pulmonary History: Denies Any Significant HX PAYROLL ANALYST History: Denies Any Significant HX Other Medical History: Denies Any Significant HX Anesthesia History: No Prior Anesthetic Complications, Past Anesthesia Test: Negative (07/21/2018) Alcohol Use: occasionally Drug use: none Medications and Allergies No Known Home Drugs 07/21/18 [History] Allergy/AdvReac Type Severity Reaction Status Date / Time Sulfa (Sulfonamide Allergy Hives Verified 07/21/18 08:22 Antibiotics) - Meds/Allergy Pre-op Review Medications Reviewed: Yes Allergies Reviewed: Yes Beta Blockers on Current Med List: No Anesthesia Results - Labs 07/22/18 05:26 07/22/18 05:26 Laboratory Tests 07/21/18 22:21 Urine Test Negative Anesthesia Exam Vital Signs/O2 Sat/Glucose, Most Recent Temp Pulse Resp BP Pulse Ox 98.1 F 69 16 99/64 98 07/22/18 10:56 07/22/18 10:56 07/22/18 10:56 07/22/18 10:56 07/22/18 10:56 Blood Glucose* 91 Height: 5'5''/1.65m Weight: 143 lbs/64.9 kg NPO (# of Hours): 8 Pain Scale: 2 (abdomen) Pain Scale Used: Numeric (1 - 10) - HEENT Pupil (Motor): EOMI Mallampati: II Teeth: Poor dentition Oral Opening: Greater than 3 - PAYROLL ANALYST LOC: Oriented PAYROLL ANALYST Motor: Normal RUE, Normal LUE, Normal RLE, Normal LLE, Normal Face PAYROLL ANALYST Sensory: Normal: RUE, LUE, RLE, LLE, Face - Cardiac Rhythm: Regular Murmur: None - Pulmonary Breath Sounds: bilateral Clear Respiratory Effort: Symmetrical Anesthesia Assess/Plan ASA Score: 1 Modified [place] Scale for Level of Consciousness: Cooperative, oriented, and tranquil Anesthetic Plan: General Monitoring Plan: Standard Monitors Recovery Plan: PACU
[2018-07-22] MEDS ORDERED: *HR* FentaNYL (PF) 100 MCG/2 ML VIAL ONE (13:29)
[2018-07-22] MEDS ORDERED: *HR* Succinylcholine 200 MG/10 ML VIAL IVP ONE (13:29)
[2018-07-22] MEDS ORDERED: Ondansetron 4 MG/2 ML VIAL ONE (13:29)
[2018-07-22] MEDS ORDERED: Lidocaine -MPF 2% 2 ML VIAL ONE (13:29)
[2018-07-22] MEDS ORDERED: *HR* Propofol 200 MG/20 ML VIAL IVP ONE (13:29)
[2018-07-22] MEDS ORDERED: Dexamethasone 4 MG/ML VIAL ONE (13:29)
[2018-07-22] MEDS ORDERED: Lidocaine -MPF 4% 5 ML AMPUL ONE (13:29)
[2018-07-22] MEDS ORDERED: *HR* Meperidine 25 MG/ML SYRINGE IVP PRN (14:58)
[2018-07-22] MEDS ORDERED: *HR* OxyCODONE Immed Rel 5 MG TABLET PO PRN (14:58)
[2018-07-22] MEDS ORDERED: Indomethacin 50 MG SUPP.RECT RC ONE (15:00)
--- NOTE | 2018-07-22 15:45 | Event Note ---
Date of Encounter: 07/22/18 Time of Encounter: 15:42 Patient is status post ERCP. Sludge and 2 mm stone removed from common bile duct. Common bile duct stent and pancreatic duct stent were placed, rectal indomethacin was given postprocedure. On intraoperative cholangiogram multiple stones were noted in the gallbladder. Given these findings would recommend surgical evaluation for possible cholecystectomy. Follow-up with GI as an outpatient in 6 weeks for stent removal.
--- NOTE | 2018-07-22 16:18 | Anesthesia Evaluation Post Op ---
Date of Encounter: 07/22/18 Time of Encounter: 16:16 - Vital Signs Vital Signs: vss - Lungs Lungs: Clear Ascult./Percussion - Airway Airway: Non-obstructed - Mental Status Mental Status: Asleep with brisk response to light stimulation - Pain Pain Scale used: Omid (Faces) - Nausea Vomiting Nausea Vomiting: Not Present - Discharge PostOp Status: Transfer Patient to floor
[2018-07-23] MEDS: *HR* Heparin 5,000 UNIT/ML VIAL SQ SCH ×3 (00:02→15:10)
[2018-07-23] MEDS: OXYCODONE Oral CONC 10 MG/0.5 ML ORAL.SYG SL PRN ×4 (04:48→18:29)
[2018-07-23] MEDS: Ringers Solution, Lactated 1,000 ML IVC SCH ×3 (04:53→15:10)
[2018-07-23 06:30] LABS: Basophils % 0.2 %; Eosinophils # 0.1 K/mcL (0.0-0.6); Eosinophils % 1.1 %; Hematocrit 32.6 % (35.3-44.9); Hemoglobin 10.6 g/dL (11.5-15.4); Immature Granulocytes % 0.4 % (0-4); Lymphocytes # 1.1 K/mcL (0.6-4.6); Lymphocytes % 25.4 %; Mean Corpuscular HGB Conc 32.5 g/dL (31.6-35.5); Mean Corpuscular Hemoglobin 28.8 pg (28.0-33.3); Mean Corpuscular Volume 88.6 fL (83.0-100.0); Monocytes # 0.4 K/mcL (0.0-1.3); Monocytes % 9.4 %; Neutrophils # 2.8 K/mcL (1.6-8.9); Platelet Count 207 K/mcL (140-400); Red Blood Count 3.68 M/mcL (3.82-4.97); Segmented Neutrophils % 63.5 %
[2018-07-23 06:47] LABS: Alanine Aminotransferase 68 Units/L (7-52); Albumin 3.4 g/dL (3.5-5.7); Albumin/Globulin Ratio 1.3 (1.1-2.2); Alkaline Phosphatase 234 Units/L (34-104); Aspartate Amino Transferase 20 Units/L (13-39); BUN/Creatinine Ratio 17 (6-26); Bilirubin,Total 1.4 mg/dL (0.3-1.0); Blood Urea Nitrogen 8 mg/dL (6-20); Calcium 9.1 mg/dL (8.6-10.3); Carbon Dioxide 26 mEq/L (23-29); Chloride 106 mEq/L (98-107); Globulin 2.6 g/dL (2.4-3.5); Glucose 108 mg/dL (70-105); Osmolality,Calculated 285 (280-300); Potassium 3.9 mEq/L (3.5-5.1); Sodium 138 mEq/L (136-145); eGFR For Non-African Americans > 60 (> 60)
[2018-07-23] MEDS: MetroNIDAZOLE 500 MG/100 ML 500 MG/100 ML BAG IVPB SCH ×2 (08:06→15:10)
[2018-07-23 09:31] LABS: Lipase 338 Units/L (11-82)
--- NOTE | 2018-07-23 10:33 | Internal Med Progress Note ---
Hospitalist Progress Note - Encounter Date of Encounter: 07/23/18 Time of Encounter: 10:33 - Subjective Interval History: Seen and evaluated at bedside She is still complaining of RUQ pain Per surgery, patient is scheduled as an add on today Noted elevated lipase on labs, s/p ERCP, LFTs improving - Exam Vitals: Temp Pulse Resp BP Pulse Ox 98.6 F 70 15 101/67 98 07/23/18 06:50 07/23/18 06:50 07/23/18 06:50 07/23/18 06:50 07/23/18 06:50 Exam: General: A, A, O x3 HEENT: Poor dentition Chest: Normal thoracic expansion. Normal breath sounds. Clear to auscultation. Heart: Normal S1 & S2; rhythmic. No rubs or murmurs. Abdomen: Non-distended, soft and moderately tender to palpation in the epigastrium and right upper quadrant. No peritoneal reaction. Extremities: No cyanosis or edema. No calf tenderness. Normal distal pulses. Psych: Affect appropriate. - Assessment and Plan (1) Acute cholecystitis Current Visit: Yes Status: Acute Assessment and Plan: Due to cholelithiasis Cont NPO IV hydration Surgery consulted LFT's trending down s/p ERCP on 07/22 with findings of sludge and gallstones within the common bile duct. Obstruction was removed and, bile duct stent and pancreatic duct stent were placed. On intra-operative cholangiogram patient was noted to have a large amount of stones within the gallbladder. Repeat lipase and LFTS am Surgery input appreciated-for surgery today (2) Biliary obstruction Current Visit: Yes Status: Acute Assessment and Plan: as above (3) DVT prophylaxis Current Visit: Yes Status: Acute Assessment and Plan: SubQ heparin (4) Hypokalemia Current Visit: Yes Status: Acute Assessment and Plan: Resolved (5) Ovarian cyst Current Visit: Yes Status: Acute Assessment and Plan: Incidentally noted on CT. 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 - Time Spent with Patient Total time spent is greater than 50% in coordination of care (as documented) at patient's floor/unit and/or counseling patient: Plan of Care Discussed with: patient Internal Medicine: Result - Labs CBC & Chem 7: 07/23/18 05:17 07/23/18 05:17 Labs: Short CBC 07/23/18 Range/Units 05:17 WBC 4.5 (4.3-11.1) K/mcL Hgb 10.6 L (11.5-15.4) g/dL Hct 32.6 L (35.3-44.9) % Plt Count 207 (140-400) K/mcL Neutrophils # 2.8 (1.6-8.9) K/mcL BMP 07/23/18 05:17 Sodium 138 Potassium 3.9 Chloride 106 Carbon Dioxide 26 BUN 8 Creatinine 0.48 L Glucose 108 H Calcium 9.1 Liver Function 07/23/18 Range/Units 05:17 Total Bilirubin 1.4 H (0.3-1.0) mg/dL AST 20 (13-39) Units/L ALT 68 H (7-52) Units/L Alkaline Phosphatase 234 H (34-104) Units/L Albumin 3.4 L (3.5-5.7) g/dL - ABG Interpretation ABG results: PT/INR, D-dimer PT 12.8 Seconds (9.4-12.1) H 07/21/18 22:03 - Impressions Impressions Cath/Invasive Procedure 07/22/18 00:00 IMPRESSION: Fluoroscopy was utilized for the purposes of ERCP for deployment of a common bile duct stent D/ / Rigoberto Kramer MD / Rigoberto Kramer MD Interpreting Provider: Rigoberto Kramer MD Consult Discharge Plan - Plan Referrals: NONE,PCP [Primary Care Provider] - (5) Ovarian cyst Qualifiers: Laterality: right Qualified Code(s): N83.201 - Unspecified ovarian cyst, right side
--- NOTE | 2018-07-23 11:15 | Gastroenterology Progress Note ---
<BartoloDick - Last Filed: 07/23/18 14:59> Date of Encounter: 07/23/18 Time of Encounter: 11:10 - Assessment and plan (1) Choledocholithiasis with acute cholecystitis Current Visit: Yes Status: Acute Assessment and plan: Postop day 1 status post ERCP with findings of sludge and gallstones within the common bile duct. Obstruction was removed and, bile duct stent and pancreatic duct stent were placed. On intra-operative cholangiogram patient was noted to have a large amount of stones within the gallbladder. Patient continues to have mild right upper quadrant pain, likely due to her acute cholecystitis. Lipase mildly elevated this morning at 338, likely due to procedure however patient is at risk for ERCP pancreatitis so continue to monitor. Plan is for cholecystectomy with surgery today. Patient will need GI follow-up in 4-6 weeks for stent removal. - Time Spent With Patient Total time spent is greater than 50% in coordination of care (as documented) at patient's floor/unit and/or counseling patient: - Subjective Interval history: Patient seen and examined at bedside. She states that she feels pretty ok today. She reports mild right upper quadrant pain. She denies any nausea or vomiting. She states that she is scheduled to have her gallbladder taken out this evening. - Constitutional Vitals: Temp Pulse Resp BP Pulse Ox 98.6 F 70 15 101/67 98 07/23/18 06:50 07/23/18 06:50 07/23/18 06:50 07/23/18 06:50 07/23/18 06:50 General appearance: Present: cooperative, A&O X 3, no acute distress, answers questions appropriately - Respiratory Respiratory exam: Present: CTAB. Absent: rales, rhonchi, wheezes - Cardiovascular Cardiovascular exam: Present: RRR. Absent: gallop, rubs, systolic murmur - GI/Abdominal GI/Abdominal exam: Present: normal bowel sounds, soft, tenderness (Right upper quadrant and epigastric). Absent: distended, rigid Results - Labs CBC & Chem 7: 07/23/18 05:17 07/23/18 05:17 Labs: Last Result Calcium 9.1 mg/dL (8.6-10.3) 07/23/18 05:17 Troponin I < 0.03 ng/mL (< 0.04) 07/21/18 22:03 Entire Visit Hgb 10.6 g/dL (11.5-15.4) L 07/23/18 05:17 Hct 32.6 % (35.3-44.9) L 07/23/18 05:17 PT 12.8 Seconds (9.4-12.1) H 07/21/18 22:03 Total Bilirubin 1.4 mg/dL (0.3-1.0) H 07/23/18 05:17 AST 20 Units/L (13-39) 07/23/18 05:17 ALT 68 Units/L (7-52) H 07/23/18 05:17 Lipase 338 Units/L (11-82) H 07/23/18 05:17 - ABG ABG results: PT/INR, D-dimer PT 12.8 Seconds (9.4-12.1) H 07/21/18 22:03 - Impressions Impressions Cath/Invasive Procedure 07/22/18 00:00 IMPRESSION: Fluoroscopy was utilized for the purposes of ERCP for deployment of a common bile duct stent D/ / Rigoberto Kramer MD / Rigoberto Kramer MD Interpreting Provider: Rigoberto Kramer MD Consult Discharge Plan - Plan Referrals: NONE,PCP [Primary Care Provider] - <Otoniel Salas - Last Filed: 07/23/18 15:21> Time of Encounter: 14:25 - Time Spent With Patient Total time spent is greater than 50% in coordination of care (as documented) at patient's floor/unit and/or counseling patient: - Constitutional Vitals: Temp Pulse Resp BP Pulse Ox 97.8 F 70 16 114/83 98 07/23/18 11:45 07/23/18 11:45 07/23/18 11:45 07/23/18 11:45 07/23/18 11:45 Results - Labs CBC & Chem 7: 07/23/18 05:17 07/23/18 05:17 Labs: Last Result Calcium 9.1 mg/dL (8.6-10.3) 07/23/18 05:17 Troponin I < 0.03 ng/mL (< 0.04) 07/21/18 22:03 Entire Visit Hgb 10.6 g/dL (11.5-15.4) L 07/23/18 05:17 Hct 32.6 % (35.3-44.9) L 07/23/18 05:17 PT 12.8 Seconds (9.4-12.1) H 07/21/18 22:03 Total Bilirubin 1.4 mg/dL (0.3-1.0) H 07/23/18 05:17 AST 20 Units/L (13-39) 07/23/18 05:17 ALT 68 Units/L (7-52) H 07/23/18 05:17 Lipase 338 Units/L (11-82) H 07/23/18 05:17 - ABG ABG results: PT/INR, D-dimer PT 12.8 Seconds (9.4-12.1) H 07/21/18 22:03 - Impressions Impressions Cath/Invasive Procedure 07/22/18 00:00 IMPRESSION: Fluoroscopy was utilized for the purposes of ERCP for deployment of a common bile duct stent D/ / Rigoberto Kramer MD / Rigoberto Kramer MD Interpreting Provider: Rigoberto Kramer MD - Attending Attestation I examined this patient and my medical decision-making was reviewed with the Resident Physician. I agree with the documented findings, disposition and treatment plan as described except to the extent set forth below. Pt seen along with Dr Mcfarland. Does complain of mild epigastric pain on questioning. On examination does has mild tenderness in the epigastric right upper quadrant area. Has mild elevation of the lipase which is most probably post ERCP. Rec: IV fluids gallbladder surgery as per surgery. Follow-up with GI as an outpatient for removal of the stent in 3-4 weeks
[2018-07-23] MEDS: *HR* FentaNYL (PF) 100 MCG/2 ML VIAL IVP PRN (11:42)
[2018-07-23] MEDS ORDERED: *HR* Succinylcholine 200 MG/10 ML VIAL IVP ONE (16:11)
[2018-07-23] MEDS ORDERED: *HR* FentaNYL (PF) 100 MCG/2 ML VIAL ONE ×2 (16:13→16:52)
[2018-07-23] MEDS ORDERED: Dexamethasone 4 MG/ML VIAL ONE ×2 (16:13→17:10)
[2018-07-23] MEDS ORDERED: *HR* Propofol 200 MG/20 ML VIAL IVP ONE (16:13)
[2018-07-23] MEDS ORDERED: *HR* Rocuronium Bromide 50 MG/5 ML VIAL ONE (16:13)
[2018-07-23] MEDS ORDERED: Lidocaine -MPF 2% 2 ML VIAL ONE (16:13)
[2018-07-23] MEDS ORDERED: Acetaminophen IV 1,000 MG/100 ML INFUS..BTL ONE (16:13)
[2018-07-23] MEDS ORDERED: Ondansetron 4 MG/2 ML VIAL ONE ×2 (16:13→17:10)
[2018-07-23] MEDS ORDERED: Neostigmine Methylsulfate 3 MG/3 ML SYRINGE ONE (16:13)
--- NOTE | 2018-07-23 16:19 | Anesthesia Evaluation PreOp ---
Date of Encounter: 07/23/18 Time of Encounter: 16:07 - Past History Planned Operation: Lap. Lizeth. Cardiac History: Denies any Significant Hx Pulmonary History: Denies Any Significant HX SILK PRINTER History: Denies Any Significant HX Other Medical History: Denies Any Significant HX : No Test: Negative (07/21/2018) Alcohol Use: occasionally Drug use: none Medications and Allergies No Known Home Drugs 07/21/18 [History] Allergy/AdvReac Type Severity Reaction Status Date / Time Sulfa (Sulfonamide Allergy Hives Verified 07/21/18 08:22 Antibiotics) - Meds/Allergy Pre-op Review Medications Reviewed: Yes Allergies Reviewed: Yes Beta Blockers on Current Med List: No Anesthesia Results - Labs 07/23/18 05:17 07/23/18 05:17 Anesthesia Exam Vital Signs/O2 Sat, Most Current Temp Pulse Resp BP Pulse Ox 98.3 F 77 15 100/66 100 07/23/18 15:24 07/23/18 15:24 07/23/18 15:24 07/23/18 15:24 07/23/18 15:24 NPO (# of Hours): > 8 hrs Pain Scale: 0 Pain Scale Used: Numeric (1 - 10) - HEENT Pupil (Motor): Pupils equal, EOMI Mallampati: II Teeth: Poor dentition Oral Opening: Greater than 3 - SILK PRINTER LOC: Oriented SILK PRINTER Motor: Normal RUE, Normal LUE, Normal RLE, Normal LLE, Normal Face SILK PRINTER Sensory: Normal: RUE, LUE, RLE, LLE, Face - Cardiac Rhythm: Regular Murmur: None JVD: No Carotid Bruit: No - Pulmonary Breath Sounds: bilateral Clear Respiratory Effort: Symmetrical Anesthesia Assess/Plan ASA Score: 1 Modified Tiller Scale for Level of Consciousness: Cooperative, oriented, and tranquil Anesthetic Plan: General Autologous Blood: Yes Recovery Plan: PACU
[2018-07-23] MEDS ORDERED: *HR* Midazolam HCl 2 MG/2 ML VIAL ONE (16:51)
[2018-07-23] MEDS ORDERED: *HR* OxyCODONE Immed Rel 5 MG TABLET PO PRN (17:30)
[2018-07-23] MEDS ORDERED: *HR* HYDROmorphone (PF) 1 MG/ML SYRINGE IVP PRN (17:30)
[2018-07-23] MEDS ORDERED: *HR* Promethazine 25 MG/ML VIAL IVP PRN ×2 (17:30→19:06)
--- NOTE | 2018-07-23 19:02 | Operative Note ---
Date of procedure: 07/23/18 Pre-op diagnosis: acute cholecystitis and choledocholithiasis Post-op diagnosis: same Procedure: Laparoscopic cholecystectomy Complications: none immediate Anesthesia: CLAIRE, local Surgeon: Jayla Ren Was there an assisted living assistant present: No Estimated blood loss (cc): 10 Specimen: gallbladder and contents Condition: stable Disposition: PACU Procedure in Detail: The patient was brought into the operating suite and placed supine on the operating table. Sign-in was performed and everyone was in agreement. Anesthesia was induced and patient was endotracheally intubated by anesthesia without incident and they also placed an OG tube. The abdomen was prepped and draped in the usual sterile fashion. A timeout was performed again everyone was in agreement. A supraumbilical incision was made through the skin into the subcutaneous tissue with an 11 blade. Towel clamps were placed on either side of the umbilicus for retraction. S retractors were used to dissect down to the anterior abdominal wall linea alba fascia. A Veress needle was placed through this incision and a water drop test confirmed placement and the abdomen was insufflated. The abdomen was entered with a 5 mm 0 degree laparoscope on a 5 mm X-jackie trocar. The area and entry was visualized was no bleeding and no apparent bowel injury. A 5 mm subxiphoid port was placed under direct visualization after first incising the skin with an 11 blade. A right upper quadrant subcostal position midclavicular line 5 mm port was placed under direct visualization after first incising skin with 11 blade. The laparoscope was placed in this and we exchanged the supraumbilical port for a 12 mm port under direct visualization. The last 5 mm port was placed in the right upper quadrant subcostal position anterior axillary line after first incising the skin with an 11 blade. The patient was placed in steep reverse Trendelenburg left side down position. The dome of the gallbladder was grasped and retracted cephalad. Omental adhesions to the body and infundibulum of the gallbladder were taken down bluntly with the [place]. The infundibulum was grasped and retracted laterally. Using the [place] we dissected out the cystic duct and cystic artery. Three 5 mm hemoclips were placed distally on the cystic duct one proximally and it was transected with curved scissors. The cystic artery was doubly clipped proximally, once distally and transected with curved scissors. The gallbladder was removed off the cystic plate with the Bovie. Any bleeding points were stopped with the Bovie. The gallbladder was placed in a laparoscopic Endo Catch bag and removed via the supraumbilical incision site. The inferior edge of the liver was bluntly retracted cephalad and the cystic plate was copiously irrigated with sterile saline. There was no bleeding or apparent bile leak from the cystic plate and the clips on the cystic artery and duct were intact. All irrigation was suctioned free from the abdomen. All insufflation was suctioned free from the abdomen and the ports removed. The abdominal wall at the supraumbilical incision site was closed with a 0 Vicryl [id number] stitch. 30 mL of 0.5% Marcaine was injected subcutaneously at the 4 port sites. The skin at the three 5 mm port sites were closed with 4-0 Monocryl interrupted subcuticular stitches. The skin at the supraumbilical incision site was closed with a 4-0 Monocryl running subcuticular stitch. Steri-Strips were applied to all wounds. The patient was awoken in the operating suite having tolerated the procedure well and were taken to PACU in stable condition after all lap and instrument counts were correct at the end of the case.
[2018-07-23] MEDS ORDERED: Ondansetron 4 MG/2 ML VIAL IVP PRN (19:06)
[2018-07-23] MEDS ORDERED: *HR* OxyCODONE Oral Soln 5 MG/5 ML UD.LIQ PO PRN (19:06)
[2018-07-23] MEDS: *HR* OxyCODONE/APAP 5/325 TABLET PO PRN (20:00)
[2018-07-24] MEDS: *HR* OxyCODONE/APAP 5/325 TABLET PO PRN ×3 (01:49→14:53)
[2018-07-24 05:42] LABS: Basophils % 0.2 %; Eosinophils % 0.2 %; Hematocrit 34.1 % (35.3-44.9); Hemoglobin 11.1 g/dL (11.5-15.4); Immature Granulocytes % 0.4 % (0-4); Lymphocytes # 0.7 K/mcL (0.6-4.6); Lymphocytes % 12.6 %; Mean Corpuscular HGB Conc 32.6 g/dL (31.6-35.5); Mean Corpuscular Hemoglobin 28.8 pg (28.0-33.3); Mean Corpuscular Volume 88.3 fL (83.0-100.0); Mean Platelet Volume 10.4 fL (9.4-12.4); Monocytes # 0.4 K/mcL (0.0-1.3); Monocytes % 7.6 %; Neutrophils # 4.5 K/mcL (1.6-8.9); Platelet Count 259 K/mcL (140-400); Red Blood Count 3.86 M/mcL (3.82-4.97); Red Cell Distribution Width 13.2 % (11.5-14.5)
[2018-07-24 06:01] LABS: Alanine Aminotransferase 68 Units/L (7-52); Albumin 3.2 g/dL (3.5-5.7); Albumin/Globulin Ratio 1.1 (1.1-2.2); Alkaline Phosphatase 192 Units/L (34-104); Aspartate Amino Transferase 51 Units/L (13-39); BUN/Creatinine Ratio 11 (6-26); Bilirubin,Direct 0.5 mg/dL (0.0-0.2); Bilirubin,Indirect 0.6 mg/dL (0.0-1.2); Bilirubin,Total 1.1 mg/dL (0.3-1.0); Blood Urea Nitrogen 5 mg/dL (6-20); Calcium 8.8 mg/dL (8.6-10.3); Carbon Dioxide 26 mEq/L (23-29); Chloride 103 mEq/L (98-107); Globulin 2.9 g/dL (2.4-3.5); Glucose 99 mg/dL (70-105); Osmolality,Calculated 281 (280-300); Sodium 137 mEq/L (136-145); Total Protein 6.1 g/dL (6.4-8.9); eGFR For Non-African Americans > 60 (> 60)
[2018-07-24] MEDS: *HR* Heparin 5,000 UNIT/ML VIAL SQ SCH ×2 (06:09→16:27)
[2018-07-24] MEDS: Ringers Solution, Lactated 1,000 ML IVC SCH ×2 (06:09→07:39)
--- NOTE | 2018-07-24 10:54 | General Surgery Progress Note ---
<Babar Perez S - Last Filed: 07/24/18 16:27> Date of Encounter: 07/24/18 Time of Encounter: 10:51 - Assessment and Plan (1) Acute cholecystitis Status: Resolved POD 1 for laparoscopic cholecystectomy Patient is S/P ERCP (07/22) with stents placed in CBD and pancreatic duct WBC 5.6 T. bili - 1.1 AST 51, ALT down trending at 68 Alk Phos down trending at 192 Lipase 338 > 254 today IV fluid hydration Oxycodone for pain Phenergan and zofran for nausea Advanced to regular diet (2) Biliary obstruction Status: Acute Patient is s/p ERCP (07/22) with stent placed in common bile duct and pancreatic duct Patient will need GI follow-up in 4-6 weeks for stent removal See above for labs (3) Hypokalemia Status: Resolved Management per primary team Resolved (4) Ovarian cyst Status: Chronic Recommend follow-up outpatient with QUALITY CONTROL TESTER Qualifiers: Laterality: right Qualified Code(s): N83.201 - Unspecified ovarian cyst, right side Subjective Patient reports: no new complaints, feels better, still having pain, pain is less, tolerating liquids well, no flatus, no bowel movement Narrative: Patient doing well this morning. Her pain is less than when she came into hospital. She denies nausea, vomiting, flatus, and BM. She tolerated her liquid diet well this morning with no complaints. Objective Vital Signs - Last 8 Hours Temp Pulse Resp BP Pulse Ox 07/24/18 07:28 98.5 F 65 15 105/68 96 07/24/18 03:00 98.2 F 69 15 105/68 96 Intake and Output 07/23/18 07/24/18 07/24/18 23:59 07:59 15:59 Intake Total 100 / 100 240 / 240 Output Total 1460 / 1460 600 / 600 Balance -1360 / -1360 -360 / -360 Intake: IV Fluids 100 / 100 Flagyl Premix 500 MG/100 ML 500 100 / 100 mg In 100 ml @ 100 mls/hr IVPB Q8HR HERMINIO Rx#:[id number] Oral 0 / 0 240 / 240 Output: Urine 1450 / 1450 600 / 600 Estimated Blood Loss Other: Meal NPO Weight 65.5 kg Patient Weight 07/24/18 23:59 Weight 65.5 kg - General physical appearance well developed, well nourished - ENT poor half-way - Respiratory normal expansion, normal respiratory effort - Cardiovascular Cardiovascular exam: Present: RRR - Abdomen Abdomen: Present: bowel sounds present, soft, tender (appropriately tender post-surgical) Abdominal Tenderness: RUQ - Incision Incision: Present: clean and dry, intact - Integumentary no rash - Psychiatric oriented to time, oriented to person, oriented to place - Labs 07/24/18 05:16 07/24/18 05:16 Diabetes panel 07/24/18 Range/Units 05:16 Sodium 137 (136-145) mEq/L Potassium 4.0 (3.5-5.1) mEq/L Chloride 103 (98-107) mEq/L Carbon Dioxide 26 (23-29) mEq/L BUN 5 L (6-20) mg/dL Creatinine 0.45 L (0.60-1.20) mg/dL Glucose 99 (70-105) mg/dL Calcium 8.8 (8.6-10.3) mg/dL AST 51 H (13-39) Units/L ALT 68 H (7-52) Units/L Alkaline Phosphatase 192 H (34-104) Units/L Albumin 3.2 L (3.5-5.7) g/dL Calcium panel 07/24/18 Range/Units 05:16 Calcium 8.8 (8.6-10.3) mg/dL Albumin 3.2 L (3.5-5.7) g/dL Pituitary panel 07/24/18 Range/Units 05:16 Sodium 137 (136-145) mEq/L Potassium 4.0 (3.5-5.1) mEq/L Chloride 103 (98-107) mEq/L Carbon Dioxide 26 (23-29) mEq/L BUN 5 L (6-20) mg/dL Creatinine 0.45 L (0.60-1.20) mg/dL Glucose 99 (70-105) mg/dL Calcium 8.8 (8.6-10.3) mg/dL Adrenal panel 07/24/18 Range/Units 05:16 Sodium 137 (136-145) mEq/L Potassium 4.0 (3.5-5.1) mEq/L Chloride 103 (98-107) mEq/L Carbon Dioxide 26 (23-29) mEq/L BUN 5 L (6-20) mg/dL Creatinine 0.45 L (0.60-1.20) mg/dL Glucose 99 (70-105) mg/dL Calcium 8.8 (8.6-10.3) mg/dL Total Bilirubin 1.1 H (0.3-1.0) mg/dL AST 51 H (13-39) Units/L ALT 68 H (7-52) Units/L Alkaline Phosphatase 192 H (34-104) Units/L Albumin 3.2 L (3.5-5.7) g/dL Consult Discharge Plan - Plan Additional Instructions: Follow up with Dr. Ren and Dr. Salas in 2 weeks and 4 weeks respectively Referrals: Jayla Ren MD [Partnered Physician] - 08/07/18 9:35 am NONE,PCP [Primary Care Provider] - Otoniel Salas MD [Partnered Physician] - (Web request entered. office will call with appointment.) Prescriptions: RX: OxyCODONE/APAP 5/325 [Percocet 5/325 MG] 1 each PO Q6HR PRN 5 Days #20 tablet PRN Reason: Pain Docusate [Colace] 100 mg PO DAILY #20 capsule <Jayla Ren - Last Filed: 07/25/18 18:00> Date of Encounter: 07/24/18 - Assessment and Plan (1) Choledocholithiasis with acute cholecystitis Status: Acute s/p laparoscopic cholecystectomy tolerating po diet labs decreasing daily ok to dc from surgical standpoint, needs followup in office in two weeks with gen surgery and manjula in 1 month (2) Elevated LFTs Status: Acute Subjective Patient reports: no new complaints, feels better, still having pain, pain is less, tolerating a regular diet, flatus, no bowel movement, afebrile Objective - General physical appearance well developed, well nourished, no distress - Eyes normal ocular movement - ENT normal mucosa, normocephalic - Neck Neck exam: trachea midline - Respiratory normal expansion, clear to auscultation - Cardiovascular Cardiovascular exam: Present: RRR - Abdomen Abdomen: Present: bowel sounds present, soft, tender. Absent: guarding, rebound - Incision Incision: Present: clean and dry, intact - Integumentary no rash - Neurologic CN 2-12 grossly intact - Musculoskeletal normal posture - Psychiatric oriented to time, oriented to person, memory intact - Labs 07/24/18 05:16 07/24/18 05:16 - Attending Attestation I examined this patient and my medical decision-making was reviewed with the Resident Physician. I agree with the documented findings, disposition and treatment plan as described except to the extent set forth below.
--- NOTE | 2018-07-24 11:02 | Discharge Summary ---
- NOTES TO OUTPATIENT PROVIDER Notes to Outpatient Provider: Patient admitted with acute cholecystitis and BDO, s/pERCP with stent placement and lap valentine. Follow up with Dr. Ren and Maritza Gann as outpatient in 2 weeks and 4 weeks respectively. Establish and follow up with [facility] for ovarian cyst Orders not resulted at time of discharge: Pending orders 07/22/18 00:45 Culture,Blood [BC] Stat 07/23/18 17:50 Surgical Pathology [PTH] Routine Date of Encounter: 07/24/18 Time of Encounter: 09:40 - Discharge Diagnosis (1) Choledocholithiasis with acute cholecystitis Priority: Primary Status: Acute (2) Acute cholecystitis Priority: Primary Status: Resolved (3) DVT prophylaxis Priority: Primary Status: Resolved (4) Hypokalemia Priority: Primary Status: Resolved (5) Ovarian cyst Priority: Secondary Status: Chronic Qualifiers: Laterality: right Qualified Code(s): N83.201 - Unspecified ovarian cyst, right side Hospital course: Ms. Brady is a 23 year old female with no significant PMH who was admitted and managed for acute cholecystitis with BDO She is POD 1 s/p lap valentine s/p ERCP on 07/22 with findings of sludge and gallstones within the common bile duct. Obstruction was removed and, bile duct stent and pancreatic duct stent were placed. On intra-operative cholangiogram patient was noted to have a large amount of stones within the gallbladder. Seen and evaluated at the bedside this mrn, no new complains, abdominal pain moslty resolved, patient is clinically improved LFTs and lipase are downtrending Patient also tolerating po and can be discharged home with pain control and appropriate follow up with Surgery and GI. 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 - Time Spent with Patient Total time spent providing and/or coordinating discharge services: Less than 30 minutes - Discharge Medications Home Medications: No Known Home Drugs 07/21/18 [History] Allergies/Adverse Reactions: Allergy/AdvReac Type Severity Reaction Status Date / Time Sulfa (Sulfonamide Allergy Hives Verified 07/21/18 08:22 Antibiotics) Date of admission: 07/22/18 00:58 Primary care physician: PCP NONE Consults: 07/22/18 00:50 Consult to Gastroenterology [CONS] Routine Consulting Provider: Gastroenterology Jane Reason for Consult: Patient admitted for acute cholecystitis with biliary stone causing ductal dilation. Assess for ERCP. Call Completed: No 07/22/18 08:42 Consult to Surgery [CONS] Routine Consulting Provider: Surgery Jane Surgical Reason for Consult: Acute cholecystitis Call Completed: No Discharging clinician: Douglas Rivera Anticipated date of discharge: 07/24/18 - Constitutional Vitals: Temp Pulse Resp BP Pulse Ox 98.5 F 65 15 105/68 96 07/24/18 07:28 07/24/18 07:28 07/24/18 07:28 07/24/18 07:28 07/24/18 07:28 General appearance: Present: A&O X 3, pleasant, no acute distress Exam: see below - Head Head exam: Present: atraumatic, normocephalic - Eye Eye exam: Present: PERRL, conjuntiva pink, sclera anicteric Pupils: Present: PERRL - Neck Neck exam general surgery: Present: supple, trachea midline. Absent: lymphadenopathy - Respiratory Respiratory exam: Present: CTAB. Absent: accessory muscle use, rales, rhonchi, wheezes - Cardiovascular Cardiovascular exam: Present: RRR, +S1, +S2. Absent: diastolic murmur, gallop, rubs, systolic murmur - GI/Abdominal GI/Abdominal exam: Present: normal bowel sounds, soft, no peritoneal signs. Absent: distended, tenderness Additional comments: scars clean - Extremities Exam Extremities exam: Present: warm, radial pulses palpable and symmetrical. Abs ent: calf tenderness, cyanotic, pedal edema - Neurological Exam Neurological exam: Present: CN II-XII intact, oriented X3, no focal deficits. Absent: pronater drift, facial droop, speech deficit - Skin Skin exam: Present: dry, intact - Patient Status Disposition: Home, Self-Care Condition: Good Functional capacity at discharge: independent ambulation Overall status at discharge: patient is progressing back to baseline - Discharge Instructions Follow Up With: NONE,PCP [Primary Care Provider] - Additional Instructions: Follow up with Dr. Ren and Dr. Salas in 2 weeks and 4 weeks respectively - Diet and Activity Activity: resume usual activities as tolerated Diet: regular diet
[2018-07-24 11:42] VITALS: BP 102/64
--- NOTE | 2018-07-26 19:05 | Electrocardiograph Report ---
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
== END 2018-07-24 18:10 | disposition home or self-care (01) | DRG 419 ==
LOC: EMEROOARM 21:39 → 3ANU 21:39 → SUATTDRO 07-22 00:58 → 3ANU 07-22 01:16
PROVIDERS: ADMIT Internal Medicine; ATTEND Internal Medicine

== ENCOUNTER → 2021-12-27 18:08 | Observation (INO) ==
[~2021-12-27 18:08] MED LIST changes: -Ampicillin 1,000 MG in 0.9 % Sodium Chloride Mini Bag 100 ML IVPB SCH; -Azithromycin 250 MG TABLET PO ONE; +Betamethasone Acet/SodPhos 30 MG/5 ML VIAL IM SCH; -Betamethasone Acet/SodPhos 6 MG/ML MDV IM SCH; +EPHEDrine 50 MG/ML VIAL IVP PRN; +Epidural Premix (fent/bupiv) 110 ML EP SCH; -Ringers Solution, Lactated 1,000 ML IVC SCH; -Ringers Solution, Lactated 1,000 ML ONE
== END | disposition home or self-care (01) ==
LOC: 1NENULAB
PROVIDERS: ADMIT Student in an Organized Health Care Education/Training Program; ATTEND Student in an Organized Health Care Education/Training Program

== ENCOUNTER 2022-01-15 15:52 | Inpatient (IN) ==
[~2022-01-15 15:52] MED LIST changes: +Azithromycin 500 MG in 0.9 % Sodium Chloride 250 ML IVPB PRN; -Betamethasone Acet/SodPhos 30 MG/5 ML VIAL IM SCH; -EPHEDrine 50 MG/ML VIAL IVP PRN; -Epidural Premix (fent/bupiv) 110 ML EP SCH; +Famotidine 20 MG/2 ML VIAL IVP PRN; +Metoclopramide 10 MG/2 ML VIAL IVP PRN; +Naloxone 0.4 MG/ML INJ IVP PRN; +Ondansetron 4 MG/2 ML VIAL IVP PRN; +Ringers Solution, Lactated 1,000 ML ONE
[2022-01-15] MEDS ORDERED: Ringers Solution, Lactated 1,000 ML IVC SCH (16:00)
[2022-01-15 16:05] LABS: Basophils % 0.4 %; Eosinophils # 0.1 K/mcL (0.0-0.6); Eosinophils % 1.1 %; Hematocrit 35.6 % (35.3-44.9); Hemoglobin 12.1 g/dL (11.5-15.4); Immature Granulocytes % 0.6 % (0-4); Lymphocytes # 1.4 K/mcL (0.6-4.6); Lymphocytes % 16.4 %; Mean Corpuscular Hemoglobin 30.4 pg (28.0-33.3); Mean Corpuscular Volume 89.4 fL (83.0-100.0); Mean Platelet Volume 10.6 fL (9.4-12.4); Monocytes # 0.8 K/mcL (0.0-1.3); Monocytes % 9.1 %; Platelet Count 275 K/mcL (140-400); Red Blood Count 3.98 M/mcL (3.82-4.97); Red Cell Distribution Width 13.9 % (11.5-14.5); Segmented Neutrophils % 72.4 %; White Blood Count 8.3 K/mcL (4.3-11.1)
[2022-01-15] MEDS ORDERED: *HR* FentaNYL (PF) 100 MCG/2 ML VIAL EP ONE (16:29)
[2022-01-15] MEDS ORDERED: EPHEDrine 50 MG/ML VIAL IVP PRN (16:29)
[2022-01-15] MEDS ORDERED: Ropivacaine/PF 0.2% 20 ML VIAL EP ONE (16:29)
[2022-01-15] MEDS ORDERED: Epidural Premix (fent/bupiv) 110 ML EP SCH (16:30)
[2022-01-15 16:42] LABS: Influenza A PCR Negative (Negative); Influenza B PCR Negative (Negative); Resp. Syncytial Virus PCR Negative (Negative)
[2022-01-15 16:43] LABS: SARS-CoV-2 by PCR (In House) Negative (Negative)
[2022-01-15 16:49] LABS: Amphetamine Screen,Urine Negative ng/mL (Cutoff=1000); Barbiturate Screen,Urine Negative ng/mL (Cutoff=200); Benzodiazepines Screen,Urine Negative ng/mL (Cutoff=200); Cannabinoid Screen,Urine Negative ng/mL (Cutoff = 50); Cocaine Screen,Urine Negative ng/mL (Cutoff= 300); Opiate Screen,Urine Negative ng/mL (Cutoff=300); Phencyclidine Screen,Urine Negative ng/mL (Cutoff=25)
[2022-01-15] MEDS ORDERED: Oxytocin 30 UNIT/503 ML BAG IVC SCH ×2 (18:00→22:01)
[2022-01-15] MEDS ORDERED: Lanolin 7 G OINT...G. TP PRN (22:01)
[2022-01-15] MEDS ORDERED: Rho Immune Globulin 1,500 UNIT SYRINGE IM PRN (22:01)
[2022-01-15] MEDS ORDERED: Benzocaine/Menthol 56 GM AEROSOL SPRAY TP PRN (22:01)
[2022-01-15] MEDS ORDERED: Measles/Mumps/Rubella Vacc 0.5 ML VIAL SQ PRN (22:01)
[2022-01-15] MEDS ORDERED: Ondansetron ODT 4 MG TAB.RAPDIS SL PRN (22:01)
[2022-01-15] MEDS: Ibuprofen 600 MG TABLET PO SCH (22:42)
[2022-01-15] MEDS: Acetaminophen 325 MG TABLET PO SCH (22:42)
[2022-01-16 03:30] LABS: Basophils % 0.2 %; Eosinophils # 0.1 K/mcL (0.0-0.6); Eosinophils % 0.9 %; Hematocrit 34.5 % (35.3-44.9); Hemoglobin 11.4 g/dL (11.5-15.4); Immature Granulocytes % 0.4 % (0-4); Lymphocytes # 1.6 K/mcL (0.6-4.6); Lymphocytes % 16.4 %; Mean Corpuscular Hemoglobin 30.1 pg (28.0-33.3); Mean Platelet Volume 10.6 fL (9.4-12.4); Monocytes # 0.8 K/mcL (0.0-1.3); Monocytes % 7.9 %; Neutrophils # 7.2 K/mcL (1.6-8.9); Platelet Count 196 K/mcL (140-400); Red Blood Count 3.79 M/mcL (3.82-4.97); Red Cell Distribution Width 13.7 % (11.5-14.5); Segmented Neutrophils % 74.2 %; White Blood Count 9.7 K/mcL (4.3-11.1)
[2022-01-16] MEDS: Acetaminophen 325 MG TABLET PO SCH ×3 (08:12→21:50)
[2022-01-16] MEDS: Ibuprofen 600 MG TABLET PO SCH ×3 (08:12→21:50)
[2022-01-16] MEDS: Prenatal Vit/FA 1 EACH TABLET PO SCH (08:12)
[2022-01-16] MEDS ORDERED: PRENATAL VIT PO SCH (09:00)
[2022-01-16] MEDS ORDERED: [UNRECOGNIZED DRUG - OTHER] PO SCH (09:00)
[2022-01-16] MEDS ORDERED: FERROUS FUM PO SCH (09:00)
[2022-01-16 20:01] VITALS: O2SAT 98
[2022-01-17 07:21] VITALS: BP 85/52; PULSE 76; TEMP 98.1
[2022-01-17] MEDS: Ibuprofen 600 MG TABLET PO SCH (07:48)
[2022-01-17] MEDS: Prenatal Vit/FA 1 EACH TABLET PO SCH (07:48)
[2022-01-17] MEDS: Acetaminophen 325 MG TABLET PO SCH (07:49)
== END 2022-01-17 11:35 | disposition home or self-care (01) | DRG 560 ==
LOC: 1NENULAB → 1NENUOBS 22:01
PROVIDERS: ADMIT Obstetrics & Gynecology; ATTEND Obstetrics & Gynecology